=== PATIENT | male | born 1960 | race Caucasian/White ===

== ENCOUNTER 2016-06-30 18:33 | Inpatient (IN) | payer OTHER ==
[~2016-06-30] VITALS: Ht 177.8 cm; Wt 114.3 kg
[2016-06-30] MEDS ORDERED: PANTOPRAZOLE SODIUM IV 80 MG in IV NORMAL SALINE 100ML 100 ML IV ONE (19:00)
[2016-06-30] MEDS ORDERED: OCTREOTIDE 500 MCG in IV NORMAL SALINE 100ML 100 ML IV PRN (19:00)
[2016-06-30] MEDS ORDERED: OCTREOTIDE 100 MCG/ML VIAL IV ONE (19:00)
[2016-06-30] MEDS ORDERED: PANTOPRAZOLE IV PUSH 40 MG VIAL. IVP ONE (19:00)
[2016-06-30 19:08] LABS: NEG OBC FOB NEG; POS OBC FOB POS
--- NOTE | 2016-06-30 19:20 | PHYS DOC ---
Past Medical History Past Medical History: Diabetes-Type II, Heart Disease, Hypertension, Hepatitis , Other Additional Past Medical Histor: Liver failure, Cirrhosis s/p TIPS, Esophageal varices Past Surgical History: Other Additional Past Surgical Histo: esophageal bands "x200", TIPS Alcohol Use: None Drug Use: None Adult General Chief Complaint Chief Complaint: GI PROBLEM HPI HPI Patient is a 55 year old male who presents by EMS from [facility]al facility for 1 episode of dark bloody emesis this evening around 1700 and dark bloody stools for the past 3-4 days. Has felt lightheaded and fatigued recently. Notes mild vague abdominal discomfort and nausea during the past 3-4 days as well. He denies pain with eating, f/c, myalgia, chest pain, dyspnea, vision changes, numbness, tingling, weakness. His PCP and GI docs are not in the area. Review of Systems Review of Systems Constitutional: Denies fever or chills [] Eyes: Denies change in visual acuity, redness, or eye pain [] HENT: Denies nasal congestion or sore throat [] Respiratory: Denies cough or shortness of breath [] Cardiovascular: No additional information not addressed in HPI [] GI: Has mild abdominal pain, nausea, vomiting, bloody stools and bloody emesis [ ] : Denies dysuria or hematuria [] Musculoskeletal: Denies back pain or joint pain [] Integument: Denies rash or skin lesions [] Neurologic: Denies headache, focal weakness or sensory changes [] Endocrine: Denies polyuria or polydipsia [] Current Medications Current Medications Current Medications Medications (Trade) Dose Ordered Sig/Mohinder Start Time Stop Time Status Last Admin Dose Admin Octreotide Acetate 500 mcg/ Sodium Chloride 101 ml @ 0 mls/hr CONT PRN 06/30/16 19:00 06/30/16 19:39 5 MLS/HR Octreotide Acetate (SandoSTATIN) 50 mcg 1X ONCE 06/30/16 19:00 06/30/16 19:01 DC 06/30/16 19:18 50 MCG Pantoprazole Sodium (Protonix Vial) 40 mg 1X ONCE 06/30/16 19:00 06/30/16 19:01 DC 06/30/16 19:14 40 MG Pantoprazole Sodium 80 mg/ Sodium Chloride 100 ml @ 10 mls/hr 1X ONCE 06/30/16 19:00 07/01/16 04:59 06/30/16 19:13 10 MLS/HR Allergies Allergies Allergies Coded Allergies Type Severity Reaction Last Updated Verified Penicillins Allergy Unknown 06/30/16 Yes amoxicillin Allergy Unknown 06/30/16 Yes clavulanic acid Allergy Unknown 06/30/16 Yes dicloxacillin Allergy Unknown 06/30/16 Yes levofloxacin Allergy Unknown 06/30/16 Yes Physical Exam Physical Exam Constitutional: Well developed, well nourished, no acute distress, non-toxic appearance. [] HENT: Normocephalic, atraumatic, bilateral external ears normal, oropharynx moist, nose normal. [] Eyes: PERRLA, EOMI. [] Neck: Normal range of motion, supple. [] Cardiovascular:Heart rate regular rhythm [] Lungs & Thorax: Bilateral breath sounds clear to auscultation [] Abdomen: Bowel sounds normal, soft, no tenderness, no masses, no distension or obvious ascites. Nontender rectal exam with black stool on glove [] Skin: Warm, dry, no erythema, no rash. [] Back: Normal ROM. [] Extremities: No tenderness, ROM intact, no edema. [] Neurologic: Alert and oriented X 3, normal motor function, normal sensory function, no focal deficits noted. [] Psychologic: Affect normal, judgement normal, mood normal. [] Current Patient Data Vital Signs Vital Signs Date Time Temp Pulse Resp B/P (MAP) Pulse Ox O2 Delivery O2 Flow Rate FiO2 06/30/16 19:04 84 20 128/58 (81) 94 Room Air 06/30/16 18:46 98.2 98.2 Lab Values Laboratory Tests Test 06/30/16 18:42 Stool Occult Blood Positive (NEG) Course & Med Decision Making Course & Med Decision Making Pertinent Labs and Imaging studies reviewed. (See chart for details) Has anemia with an unknown baseline. Has slight elevation of his INR, without chronic anticoagulation. Laboratory evaluation is otherwise largely unremarkable. He was started on octreotide and Protonix drips for concern of upper GI bleed. Discussed case with Dr. Chirinos, who will admit. Discussed case with Dr. Walter, gastroenterology, who recommends endoscopy tonight in the ICU. Dragon Disclaimer Dragon Disclaimer This electronic medical record was generated, in whole or in part, using a voice recognition dictation system. Departure Departure Impression: Primary Impression: Upper GI bleed Additional Impressions: Liver cirrhosis Esophageal varices Disposition: ADMITTED INPATIENT Condition: CRITICAL Problem Qualifiers Additional Impressions: Liver cirrhosis Hepatic cirrhosis type: unspecified hepatic cirrhosis Esophageal varices Esophageal varices type: secondary Esophageal varices bleeding: with bleeding Qualified Codes: I85.11 - Secondary esophageal varices with bleeding Golden CONTRERAS MD June 30, 2016 19:20
[2016-06-30] MEDS ORDERED: ONDANSETRON PF 4 MG/2 ML VIAL. IV PRN (19:45)
[2016-06-30] MEDS ORDERED: ACETAMINOPHEN 325 MG TABLET. PO PRN (19:45)
[2016-06-30 19:52] LABS: BASO # 0.1 x10^3/uL (0.0-0.2); BASO % 0 % (0-3); EOS % 0 % (0-3); HEMATOCRIT 22.8 % (39.0-53.0); HEMOGLOBIN 7.9 g/dL (13.0-17.5); LYMPH # 0.7 x10^3/uL (1.0-4.8); LYMPH % 5 % (24-48); MEAN CORPUSCULAR HEMOGLOBIN 31 pg (25-35); MEAN CORPUSCULAR HGB CONC 35 g/dL (31-37); MEAN CORPUSCULAR VOLUME 91 fL (79-100); MONO % 5 % (0-9); NEUT % 90 % (31-73); PLATELET COUNT 154 x10^3/uL (140-400); RED BLOOD COUNT 2.51 x10^6/uL (4.30-5.70); RED CELL DISTRIBUTION WIDTH 17.9 % (11.5-14.5); WHITE BLOOD COUNT 15.1 x10^3/uL (4.0-11.0)
[2016-06-30 20:02] LABS: INR 1.5 (0.8-1.1); PROTHROMBIN TIME PATIENT 16.8 SEC (11.7-14.0)
[2016-06-30 20:15] LABS: CALCIUM 8.8 mg/dL (8.5-10.1); CREATININE 1.1 mg/dL (0.7-1.3); POTASSIUM 4.3 mmol/L (3.5-5.1)
[2016-06-30 20:18] LABS: ALBUMIN 2.7 g/dL (3.4-5.0); DIRECT BILIRUBIN 0.8 mg/dL (0.0-0.2); TOTAL BILIRUBIN 3.2 mg/dL (0.2-1.0); TOTAL PROTEIN 5.8 g/dL (6.4-8.2)
--- NOTE | 2016-06-30 20:58 | PDOC1 ---
History and Physical Date of Admission Date of Admission DATE: 06/30/16 TIME: 20:40 Identification/Chief Complaint Chief Complaint melena, coffee emesis Problems: Source Source: Chart review, Patient History of Present Illness History of Present Illness Mr. Pierce, is a 55 year old male who presents by EMS from [facility]. He had 1 episode of dark bloody/coffee ground emesis today, some nausea now. Dark nearly black stool for 3 days, and sticky, has been tested for heme + X2 new stress with a family situation 3 days ago, that he has been very worried about and he feels related He has Hx of Hep C, treated in 2008, but has been following with a GI in [place], Has felt lightheaded and fatigued recently. Blood sugars are usually in good control, now > 300 Past Medical History Past Medical History he takes Lasix and reports no kidney or CV issue known Cardiovascular: HTN Family History Family History: Family History Unknown Social History Smoke: No ALCOHOL: none Current Problem List Problem List Problems Medical Problems: (1) Esophageal varices Status: Acute (2) Liver cirrhosis Status: Acute (3) Upper GI bleed Status: Acute Problems: Current Medications Current Medications Current Medications Octreotide Acetate (SandoSTATIN) 50 mcg 1X ONCE IV Last administered on 19:18; Start 06/30/16 at 19:00; Stop 06/30/16 at 19:01; Status DC Octreotide Acetate 500 mcg/ Sodium Chloride 101 ml @ 0 mls/hr CONT PRN IV SEE I /O RECORD Last administered on 06/30/16 19:39; Start 06/30/16 at 19:00 Pantoprazole Sodium (Protonix Vial) 40 mg 1X ONCE IVP Last administered on 19:14; Start 06/30/16 at 19:00; Stop 06/30/16 at 19:01; Status DC Pantoprazole Sodium 80 mg/ Sodium Chloride 100 ml @ 10 mls/hr 1X ONCE IV Last administered on 06/30/16 19:13; Start 06/30/16 at 19:00; Stop 07/01/16 at 04:59 Ondansetron HCl (Zofran) 4 mg PRN Q8HRS PRN IV NAUSEA/VOMITING; Start 06/30/16 at 19:45; Stop 07/01/16 at 19:44 Acetaminophen (Tylenol) 650 mg PRN Q4HRS PRN PO FEVER; Start 06/30/16 at 19:45 ; Stop 07/01/16 at 19:44 Fentanyl Citrate (Fentanyl 2ml Vial) 50 mcg PRN Q2HR PRN IV PAIN; Start at 19:45 Allergies Allergies: Coded Allergies: Penicillins (Verified Allergy, Unknown, 06/30/16) amoxicillin (Verified Allergy, Unknown, 06/30/16) clavulanic acid (Verified Allergy, Unknown, 06/30/16) dicloxacillin (Verified Allergy, Unknown, 06/30/16) levofloxacin (Verified Allergy, Unknown, 06/30/16) ROS Review of System He denies pain with eating, f/c, myalgia, chest pain, dyspnea, vision changes, numbness, tingling, weakness. General: No: Chills, Night Sweats, Fatigue, Malaise, Appetite, Other PSYCHOLOGICAL ROS: No: Anxiety, Behavioral Disorder, Concentration difficultie , Decreased libido, Depression, Disorientation, Hallucinations, Hostility, Irritablity, Memory difficulties, Mood Swings, Obsessive thoughts, Physical abuse, Sexual abuse, Sleep disturbances, Suicidal ideation, Other Eyes: Yes Uses glasses, Yes Other (light sensitivity), No Blurry vision, No Decreased vision, No Double vision, No Dry eyes, No Excessive tearing, No Eye Pain, No Itchy Eyes, No Loss of vision, No Photophobia , No Scotomata, No Uses contacts HEENT: YES: Heacaches, No: Visual Changes, Hearing change, Nasal congestion, Nasal discharge, Oral lesions, Sinus pain, Sore Throat, Epistaxis, Sneezing, Snoring, Tinnitus, Vertigo, Vocal changes, Other Cardiovascular: No Chest Pain, No Palpitations, No Orthopnea, No Paroxysmal Noc. Dyspnea, No Edema, No Lt Headedness, No Other Gastrointestinal: No Nausea, No Vomiting, No Abdominal Pain, No Diarrhea, No Constipation, No Melena, No Hematochezia, No Other Genitourinary: No Dysuria, No Frequency, No Incontinence, No Hematuria, No Retention, No Discharge, No Urgency, No Pain, No Flank Pain, No Other, No , No , No , No , No , No , No Musculoskeletal: No Gait Disturbance, No Joint Pain, No Joint Stiffness, No Joint Swelling, No Muscle Pain, No Muscular Weakness, No Pain In:, No Swelling In:, No Other Neurological: No Behavorial Changes, No Bowel/Bladder ControlChng, No Confusion , No Dizziness, No Gait Disturbance, No Headaches, No Impaired Coord/balance, No Memory Loss, No Numbness/Tingling, No Seizures, No Speech Problems, No Tremors, No Visual Changes, No Weakness, No Other Skin: No Dry Skin, No Eczema, No Hair Changes, No Lumps, No Mole Changes, No Mottling, No Nail Changes, No Pruritus, No Rash, No Skin Lesion Changes, No Other, No Acne Physical Exam General: Alert, Oriented X3, Cooperative, No acute distress HEENT: EOMI, Mucous membr. moist/pink Lungs: Clear to auscultation, Normal air movement Heart: no gallops, no murmurs Abdomen: Normal bowel sounds, Soft Rectal Exam: not examined Extremities: No cyanosis, No edema, Normal pulses Skin: No significant lesion Neuro: Normal speech, Normal tone, Sensation intact, Cranial nerves 3-12 NL Psych/Mental Status: Mood NL Vitals Vitals Vital Signs Date Time Temp Pulse Resp B/P (MAP) Pulse Ox O2 Delivery O2 Flow Rate FiO2 06/30/16 20:04 78 21 136/62 (86) 95 Room Air 06/30/16 18:46 98.2 98.2 Labs Labs Laboratory Tests Test 06/30/16 18:42 06/30/16 19:32 Stool Occult Blood Positive (NEG) White Blood Count 15.1 x10^3/uL (4.0-11.0) Red Blood Count 2.51 x10^6/uL (4.30-5.70) Hemoglobin 7.9 g/dL (13.0-17.5) Hematocrit 22.8 % (39.0-53.0) Mean Corpuscular Volume 91 fL (79-100) Mean Corpuscular Hemoglobin 31 pg (25-35) Mean Corpuscular Hemoglobin Concent 35 g/dL (31-37) Red Cell Distribution Width 17.9 % (11.5-14.5) Platelet Count 154 x10^3/uL (140-400) Neutrophils (%) (Auto) 90 % (31-73) Lymphocytes (%) (Auto) 5 % (24-48) Monocytes (%) (Auto) 5 % (0-9) Eosinophils (%) (Auto) 0 % (0-3) Basophils (%) (Auto) 0 % (0-3) Neutrophils # (Auto) 13.5 x10^3uL (1.8-7.7) Lymphocytes # (Auto) 0.7 x10^3/uL (1.0-4.8) Monocytes # (Auto) 0.7 x10^3/uL (0.0-1.1) Eosinophils # (Auto) 0.1 x10^3/uL (0.0-0.7) Basophils # (Auto) 0.1 x10^3/uL (0.0-0.2) Prothrombin Time 16.8 SEC (11.7-14.0) Prothromb Time International Ratio 1.5 (0.8-1.1) Activated Partial Thromboplast Time 26 SEC (24-38) Sodium Level 137 mmol/L (136-145) Potassium Level 4.3 mmol/L (3.5-5.1) Chloride Level 104 mmol/L (98-107) Carbon Dioxide Level 23 mmol/L (21-32) Anion Gap 10 (6-14) Blood Urea Nitrogen 46 mg/dL (8-26) Creatinine 1.1 mg/dL (0.7-1.3) Estimated GFR (Cockcroft-Gault) 69.0 Glucose Level 340 mg/dL (70-99) Calcium Level 8.8 mg/dL (8.5-10.1) Total Bilirubin 3.2 mg/dL (0.2-1.0) Direct Bilirubin 0.8 mg/dL (0.0-0.2) Aspartate Amino Transf (AST/SGOT) 24 U/L (15-37) Alanine Aminotransferase (ALT/SGPT) 25 U/L (16-63) Alkaline Phosphatase 62 U/L (46-116) Total Protein 5.8 g/dL (6.4-8.2) Albumin 2.7 g/dL (3.4-5.0) Laboratory Tests Test 06/30/16 18:42 06/30/16 19:32 Stool Occult Blood Positive (NEG) White Blood Count 15.1 x10^3/uL (4.0-11.0) Red Blood Count 2.51 x10^6/uL (4.30-5.70) Hemoglobin 7.9 g/dL (13.0-17.5) Hematocrit 22.8 % (39.0-53.0) Mean Corpuscular Volume 91 fL (79-100) Mean Corpuscular Hemoglobin 31 pg (25-35) Mean Corpuscular Hemoglobin Concent 35 g/dL (31-37) Red Cell Distribution Width 17.9 % (11.5-14.5) Platelet Count 154 x10^3/uL (140-400) Neutrophils (%) (Auto) 90 % (31-73) Lymphocytes (%) (Auto) 5 % (24-48) Monocytes (%) (Auto) 5 % (0-9) Eosinophils (%) (Auto) 0 % (0-3) Basophils (%) (Auto) 0 % (0-3) Neutrophils # (Auto) 13.5 x10^3uL (1.8-7.7) Lymphocytes # (Auto) 0.7 x10^3/uL (1.0-4.8) Monocytes # (Auto) 0.7 x10^3/uL (0.0-1.1) Eosinophils # (Auto) 0.1 x10^3/uL (0.0-0.7) Basophils # (Auto) 0.1 x10^3/uL (0.0-0.2) Prothrombin Time 16.8 SEC (11.7-14.0) Prothromb Time International Ratio 1.5 (0.8-1.1) Activated Partial Thromboplast Time 26 SEC (24-38) Sodium Level 137 mmol/L (136-145) Potassium Level 4.3 mmol/L (3.5-5.1) Chloride Level 104 mmol/L (98-107) Carbon Dioxide Level 23 mmol/L (21-32) Anion Gap 10 (6-14) Blood Urea Nitrogen 46 mg/dL (8-26) Creatinine 1.1 mg/dL (0.7-1.3) Estimated GFR (Cockcroft-Gault) 69.0 Glucose Level 340 mg/dL (70-99) Calcium Level 8.8 mg/dL (8.5-10.1) Total Bilirubin 3.2 mg/dL (0.2-1.0) Direct Bilirubin 0.8 mg/dL (0.0-0.2) Aspartate Amino Transf (AST/SGOT) 24 U/L (15-37) Alanine Aminotransferase (ALT/SGPT) 25 U/L (16-63) Alkaline Phosphatase 62 U/L (46-116) Total Protein 5.8 g/dL (6.4-8.2) Albumin 2.7 g/dL (3.4-5.0) VTE Prophylaxis Ordered VTE Prophylaxis Devices: Yes VTE Pharmacological Prophylaxi: No Assessment/Plan Assessment/Plan Upper GI bleed possible Esoph variceal bleed, octreotide and PPI gtt ordered Hepatitis C, treated in 2008 by Interferon per patient htn, symptoms of diastolic CHF, home meds potassium, Lasix, Hctz, Lisinopril, hold all of these for ICU admit, SIRS, not infectious Mod malnutrition BMI 31, DM2, diet controlled in mcc, add SSI, hold on long acting as may be NPO, NPO now admit to ICU ROMANA SMITH MD June 30, 2016 20:58
[2016-06-30 21:00] VITALS: BP 138/70
[2016-06-30] MEDS ORDERED: DEXTROSE 50% 25 GM / 50ML DISP.SYRIN. IV PRN (21:00)
[2016-06-30] MEDS ORDERED: PHYTONADIONE (VIT K1) 10 MG in IV NORMAL SALINE 50ML 50 ML IV ONE (21:00)
[2016-06-30] MEDS ORDERED: EPINEPHrine 1 MG/ML VIAL ONE ×2 (21:00→21:36)
[2016-06-30] MEDS: INSULIN ASPART 300 UNITS/3 ML INSULN.PEN SQ SCH (21:00)
[2016-06-30] MEDS ORDERED: INSULIN DETEMIR 300 UNITS/3 ML INSULN.PEN. SQ SCH (21:00)
[2016-06-30] MEDS ORDERED: EPINEPHrine SYRINGE 1 MG/10 ML SYRINGE ONE ×3 (21:00→21:43)
[2016-06-30] MEDS ORDERED: MIDAZOLAM HCL/PF 5 MG/5 ML VIAL. ONE (21:05)
[2016-06-30] MEDS ORDERED: fentaNYL PF VIAL 100 MCG/2 ML VIAL ONE (21:05)
[2016-06-30] MEDS ORDERED: diphenhydrAMINE 50 MG/ML VIAL ONE (21:05)
[2016-06-30] MEDS: INSULIN DETEMIR 300 UNITS/3 ML INSULN.PEN. SQ SCH (21:15)
--- NOTE | 2016-06-30 21:15 | PDOC2 ---
CONSULT Date of Consult Date of Consult DATE: 06/30/16 TIME: 21:12 Reason for Consult Reason for Consult: Acute blood loss anemia/Coffee ground emesis/Hx Cirrhosis/TIPS Past Medical History Cardiovascular: HTN Family History Family History: Family History Unknown Social History No ALCOHOL: none Current Problem List Problem List Problems Medical Problems: (1) Esophageal varices Status: Acute (2) Liver cirrhosis Status: Acute (3) Upper GI bleed Status: Acute Current Medications Current Medications Current Medications Octreotide Acetate (SandoSTATIN) 50 mcg 1X ONCE IV Last administered on 19:18; Start 06/30/16 at 19:00; Stop 06/30/16 at 19:01; Status DC Octreotide Acetate 500 mcg/ Sodium Chloride 101 ml @ 0 mls/hr CONT PRN IV SEE I /O RECORD Last administered on 06/30/16 19:39; Start 06/30/16 at 19:00 Pantoprazole Sodium (Protonix Vial) 40 mg 1X ONCE IVP Last administered on 19:14; Start 06/30/16 at 19:00; Stop 06/30/16 at 19:01; Status DC Pantoprazole Sodium 80 mg/ Sodium Chloride 100 ml @ 10 mls/hr 1X ONCE IV Last administered on 06/30/16 19:13; Start 06/30/16 at 19:00; Stop 07/01/16 at 04:59 Ondansetron HCl (Zofran) 4 mg PRN Q8HRS PRN IV NAUSEA/VOMITING; Start 06/30/16 at 19:45; Stop 06/30/16 at 20:42; Status DC Acetaminophen (Tylenol) 650 mg PRN Q4HRS PRN PO FEVER; Start 06/30/16 at 19:45 ; Stop 07/01/16 at 19:44 Fentanyl Citrate (Fentanyl 2ml Vial) 50 mcg PRN Q2HR PRN IV PAIN; Start at 19:45 Ondansetron HCl (Zofran) 8 mg PRN Q8HRS PRN IV NAUSEA/VOMITING; Start 06/30/16 at 20:45 Lorazepam (Ativan) 2 mg PRN Q4HRS PRN IV ANXIETY / AGITATION; Start 06/30/16 at 20:45 Phytonadione 10 mg/Sodium Chloride 51 ml @ 102 mls/hr 1X ONCE IV ; Start 06/30 at 21:00; Stop 06/30/16 at 21:29 Insulin Aspart (NovoLOG) 0-9 UNITS QIDACHS SQ ; Start 06/30/16 at 21:00 Dextrose (Dextrose 50%-Water Syringe) 12.5 gm PRN Q15MIN PRN IV SEE COMMENTS; Start 06/30/16 at 21:00 Insulin Detemir (Levemir) QHS SQ ; Start 06/30/16 at 21:00; Stop 06/30/16 at 21 :01; Status DC Insulin Detemir (Levemir) 5 units QHS SQ ; Start 06/30/16 at 21:15 Midazolam HCl (Versed) 5 mg STK-MED ONCE .ROUTE ; Start 06/30/16 at 21:05; Stop 06/30/16 at 21:06; Status DC Fentanyl Citrate (Fentanyl 2ml Vial) 100 mcg STK-MED ONCE .ROUTE ; Start at 21:05; Stop 06/30/16 at 21:06; Status DC Diphenhydramine HCl (Benadryl) 50 mg STK-MED ONCE .ROUTE ; Start 06/30/16 at 21: 05; Stop 06/30/16 at 21:06; Status DC Allergies Allergies: Coded Allergies: Penicillins (Verified Allergy, Unknown, 06/30/16) amoxicillin (Verified Allergy, Unknown, 06/30/16) clavulanic acid (Verified Allergy, Unknown, 06/30/16) dicloxacillin (Verified Allergy, Unknown, 06/30/16) levofloxacin (Verified Allergy, Unknown, 06/30/16) Vitals VITALS Vital Signs Date Time Temp Pulse Resp B/P (MAP) Pulse Ox O2 Delivery O2 Flow Rate FiO2 06/30/16 20:04 78 21 136/62 (86) 95 Room Air 06/30/16 18:46 98.2 98.2 Labs Labs Laboratory Tests Test 06/30/16 18:42 06/30/16 19:32 Stool Occult Blood Positive (NEG) White Blood Count 15.1 x10^3/uL (4.0-11.0) Red Blood Count 2.51 x10^6/uL (4.30-5.70) Hemoglobin 7.9 g/dL (13.0-17.5) Hematocrit 22.8 % (39.0-53.0) Mean Corpuscular Volume 91 fL (79-100) Mean Corpuscular Hemoglobin 31 pg (25-35) Mean Corpuscular Hemoglobin Concent 35 g/dL (31-37) Red Cell Distribution Width 17.9 % (11.5-14.5) Platelet Count 154 x10^3/uL (140-400) Neutrophils (%) (Auto) 90 % (31-73) Lymphocytes (%) (Auto) 5 % (24-48) Monocytes (%) (Auto) 5 % (0-9) Eosinophils (%) (Auto) 0 % (0-3) Basophils (%) (Auto) 0 % (0-3) Neutrophils # (Auto) 13.5 x10^3uL (1.8-7.7) Lymphocytes # (Auto) 0.7 x10^3/uL (1.0-4.8) Monocytes # (Auto) 0.7 x10^3/uL (0.0-1.1) Eosinophils # (Auto) 0.1 x10^3/uL (0.0-0.7) Basophils # (Auto) 0.1 x10^3/uL (0.0-0.2) Prothrombin Time 16.8 SEC (11.7-14.0) Prothromb Time International Ratio 1.5 (0.8-1.1) Activated Partial Thromboplast Time 26 SEC (24-38) Sodium Level 137 mmol/L (136-145) Potassium Level 4.3 mmol/L (3.5-5.1) Chloride Level 104 mmol/L (98-107) Carbon Dioxide Level 23 mmol/L (21-32) Anion Gap 10 (6-14) Blood Urea Nitrogen 46 mg/dL (8-26) Creatinine 1.1 mg/dL (0.7-1.3) Estimated GFR (Cockcroft-Gault) 69.0 Glucose Level 340 mg/dL (70-99) Calcium Level 8.8 mg/dL (8.5-10.1) Total Bilirubin 3.2 mg/dL (0.2-1.0) Direct Bilirubin 0.8 mg/dL (0.0-0.2) Aspartate Amino Transf (AST/SGOT) 24 U/L (15-37) Alanine Aminotransferase (ALT/SGPT) 25 U/L (16-63) Alkaline Phosphatase 62 U/L (46-116) Total Protein 5.8 g/dL (6.4-8.2) Albumin 2.7 g/dL (3.4-5.0) Laboratory Tests Test 06/30/16 18:42 06/30/16 19:32 Stool Occult Blood Positive (NEG) White Blood Count 15.1 x10^3/uL (4.0-11.0) Red Blood Count 2.51 x10^6/uL (4.30-5.70) Hemoglobin 7.9 g/dL (13.0-17.5) Hematocrit 22.8 % (39.0-53.0) Mean Corpuscular Volume 91 fL (79-100) Mean Corpuscular Hemoglobin 31 pg (25-35) Mean Corpuscular Hemoglobin Concent 35 g/dL (31-37) Red Cell Distribution Width 17.9 % (11.5-14.5) Platelet Count 154 x10^3/uL (140-400) Neutrophils (%) (Auto) 90 % (31-73) Lymphocytes (%) (Auto) 5 % (24-48) Monocytes (%) (Auto) 5 % (0-9) Eosinophils (%) (Auto) 0 % (0-3) Basophils (%) (Auto) 0 % (0-3) Neutrophils # (Auto) 13.5 x10^3uL (1.8-7.7) Lymphocytes # (Auto) 0.7 x10^3/uL (1.0-4.8) Monocytes # (Auto) 0.7 x10^3/uL (0.0-1.1) Eosinophils # (Auto) 0.1 x10^3/uL (0.0-0.7) Basophils # (Auto) 0.1 x10^3/uL (0.0-0.2) Prothrombin Time 16.8 SEC (11.7-14.0) Prothromb Time International Ratio 1.5 (0.8-1.1) Activated Partial Thromboplast Time 26 SEC (24-38) Sodium Level 137 mmol/L (136-145) Potassium Level 4.3 mmol/L (3.5-5.1) Chloride Level 104 mmol/L (98-107) Carbon Dioxide Level 23 mmol/L (21-32) Anion Gap 10 (6-14) Blood Urea Nitrogen 46 mg/dL (8-26) Creatinine 1.1 mg/dL (0.7-1.3) Estimated GFR (Cockcroft-Gault) 69.0 Glucose Level 340 mg/dL (70-99) Calcium Level 8.8 mg/dL (8.5-10.1) Total Bilirubin 3.2 mg/dL (0.2-1.0) Direct Bilirubin 0.8 mg/dL (0.0-0.2) Aspartate Amino Transf (AST/SGOT) 24 U/L (15-37) Alanine Aminotransferase (ALT/SGPT) 25 U/L (16-63) Alkaline Phosphatase 62 U/L (46-116) Total Protein 5.8 g/dL (6.4-8.2) Albumin 2.7 g/dL (3.4-5.0) Assessment/Plan Assessment/Plan Acute blood loss anemia- with cirrhosis/varices/tips, etiology to be determined. Plan transfusional support to maintain Hg >8 PPI/octreotide drips EGD with possible interventions. R/B discussed with patient who is willing to proceed Full note dictated AV WOOD MD June 30, 2016 21:15
[2016-06-30] MEDS ORDERED: diphenhydrAMINE 50 MG/ML VIAL IV ONE (21:20)
[2016-06-30] MEDS ORDERED: fentaNYL PF VIAL 100 MCG/2 ML VIAL IV ONE ×2 (21:21→21:24)
[2016-06-30] MEDS ORDERED: VERAPAMIL 5 MG/2 ML VIAL. IV ONE (21:21)
[2016-06-30] MEDS ORDERED: MIDAZOLAM HCL/PF 5 MG/5 ML VIAL. IV ONE ×2 (21:24→21:28)
[2016-06-30 22:00] VITALS: BP 110/70
--- NOTE | 2016-06-30 22:00 | PDOC4 ---
Operative Note Operative Note EGD Meds Versed 5 mg/Benadryl 50 mg/Fentanyl 100 mcg Preop dx- acute blood loss anemia/hematemesis/hx cirrhosis/varices Post-op dx normal esophagus/duodenum adherent clot cardia consistent with proximal ulcer GE junction without varices Plan serial cbcs/transfusional support/PPI/octreotide therapy possible repeat EGD and/or angiography if bleeding resumes. Full note dictated AV WOOD MD June 30, 2016 22:00
[2016-06-30] MEDS ORDERED: GABAPENTIN 300 MG CAPSULE. PO ONE (22:30)
[2016-06-30] MEDS: fentaNYL PF VIAL 100 MCG/2 ML VIAL IV PRN (22:55)
[2016-06-30 23:00] VITALS: BP 117/77
--- NOTE | 2016-06-30 23:34 | OP ---
DATE OF SURGERY: 06/30/2016 PROCEDURE PERFORMED: Esophagogastroduodenoscopy. MEDICATIONS RECEIVED: Versed 5 mg IV, fentanyl 100 mcg IV, and Benadryl 50 mg IV. PREOPERATIVE DIAGNOSES: History of varices, , acute blood loss anemia and coffee ground emesis. POSTOPERATIVE DIAGNOSES: Adherent clot in the proximal stomach consistent most likely with a proximal gastric ulcer, no evidence of esophageal or gastric varices. DESCRIPTION OF PROCEDURE: After risks and benefits of procedure including risk of perforation during the operation were discussed with the patient and family, informed consent was obtained. The patient was then placed in the left lateral decubitus position. Parenteral analgesia was administered over approximately 8 minutes. Endoscope was then advanced through the esophagus where there was no evidence of retained blood, no Kandace-Bansal tear, esophageal varices at this time despite previous TIPS and history of esophageal varices. Large amount of retained dark blood was noted within the stomach. This was suctioned. There were no distal ulcers, no ulcers along the lesser curve. No GE junction pathology such as gastric varices. There was an adherent area of blood and clots in the cardia, which could not be removed with successive flushings and suctioning, the most likely bleeding source. Duodenum was inspected, first and second portions without evidence of any retained blood and clear visualization of mucosa was encountered with no varices, malignancy or tumor. The scope was then straightened and withdrawn as the patient began to awaken from his conscious sedation. He will be continued with his octreotide and PPI drips. He will receive blood transfusion, serial blood counts and potentially may need to repeat endoscopy and/or even angiography if she continues to bleed to further assess bleeding source. AV WOOD MD DR: NADIA/madelin JOB#: [id number] / [id number]
[2016-06-30 23:36] LABS: ANISOCYTOSIS SLIGHT; PLT ESTIMATE ADEQUATE (ADEQUATE); POIKILOCYTOSIS SLIGHT; POLYCHROMASIA SLIGHT
[2016-06-30 23:37] LABS: OVALOCYTES FEW
[2016-07-01] VITALS (24 sets, daily range): BP systolic 97–152; BP diastolic 38–77
--- NOTE | 2016-07-01 00:07 | ACF ---
Admission Forms Criteria GASTROINTESTINAL BLEEDING, UPPER Clinical Indications for Admission to Inpatient Care ( Place 'X' for any and all applicable criteria): Admission is indicated for ANY ONE of the following(1)(2)(3)(4)(5)(6): [X ]I. Active bleeding (eg, fresh voluminous blood in emesis or nasogastric aspirate) [ ]II. Associated conditions requiring hospitalization (eg, perforation, obstruction from ulcer) [ ]III. Inpatient admission required rather than observation care (Also use Gastrointestinal Bleeding, Upper: Observation Care as appropriate) because of ANY ONE of the following: [ ]a) Hemodynamic instability that is severe or persistent [ ]b) Anemia requiring inpatient admission as indicated by ALL of the following: [ ]1) Presence of significant clinical finding indicated by ANY ONE of the following: [ ]A. Tachycardia for age [ ]B. Orthostatic vital sign changes [ ]C. Cognitive impairment [ ]D. Heart failure [ ]E. Chest pain [ ]F. Exertional dyspnea [ ]G. Other findings suggesting inadequate perfusion (eg, peripheral or myocardial ischemia, end organ dysfunction) [ ]2) Initial (eg, emergency department, observation care) treatment with transfusion or volume replacement is judged inappropriate (due to severity of the finding) or has been ineffective [ ]c) Severe pain requiring acute inpatient management [ ]d) High-risk low platelet count [ ]e) IV fluid to replace significant ongoing losses (greater than 3 L/m2 per day) [ ]f) Immediate inpatient surgery [ ]g) Other condition, treatment or monitoring requiring inpatient admission [ ]IV. Severe liver disease (eg, cirrhosis) [ ]V. Significant active comorbid disease [ ]. Anticoagulation therapy [ ]VII. High-risk endoscopic features (arterial bleeding, adherent clot, nonbleeding visible vessel, varices, flat red spots, ulcer size greater than 2 cm, or portal hypertensive gastropathy) [ ]VIII. Previous aortic graft placement or known aortic aneurysm [ ]IX. Coagulopathy [ ]X. Syncope Extended stay beyond goal length of stay may be needed for(1)(2): [ ]a) Emergency surgery [ ]b) Varices [ ]c) Coagulation abnormalities [ ]d) Recurrent, obscure, or persistent bleeding or continued Hemodynamic instability [ ]e) Associated conditions requiring surgery (eg, perforated gastric ulcer, gastric outlet obstruction) [ ]f) Active comorbidities (eg, renal insufficiency, heart failure, pre- existing liver disease) The original [facility] [employer] content created by [facility] has been revised. The portions of the content which have been revised are identified through the use of italic text or in bold, and [facility] has neither reviewed nor approved the modified material. All other unmodified content is copyright [facility] [employer]. Please see references footnoted in the original [facility] edition 2016 Admission Criteria Met?: Yes ROCKY RUSH July 01, 2016 00:07
[2016-07-01] MEDS: fentaNYL PF VIAL 100 MCG/2 ML VIAL IV PRN (01:35)
[2016-07-01] MEDS: PANTOPRAZOLE SODIUM IV 80 MG in IV NORMAL SALINE 100ML 100 ML IV SCH ×2 (04:34→16:01)
[2016-07-01 05:43] LABS: BASO % 0 % (0-3); EOS % 3 % (0-3); HEMATOCRIT 24.4 % (39.0-53.0); HEMOGLOBIN 8.6 g/dL (13.0-17.5); LYMPH # 1.7 x10^3/uL (1.0-4.8); LYMPH % 15 % (24-48); MEAN CORPUSCULAR HEMOGLOBIN 32 pg (25-35); MEAN CORPUSCULAR HGB CONC 35 g/dL (31-37); MEAN CORPUSCULAR VOLUME 91 fL (79-100); MONO % 7 % (0-9); NEUT % 75 % (31-73); PLATELET COUNT 109 x10^3/uL (140-400); RED BLOOD COUNT 2.69 x10^6/uL (4.30-5.70); WHITE BLOOD COUNT 10.9 x10^3/uL (4.0-11.0)
--- NOTE | 2016-07-01 06:09 | CONS ---
DATE OF CONSULTATION: 06/30/2016 REASON FOR CONSULTATION: Acute blood loss anemia and coffee ground emesis. HISTORY OF PRESENT ILLNESS: A 55-year-old male who is a [place] ____ prisoner with a history of hep C as well as TIPS, hypertension, history of esophageal varices, who was admitted to [facility] with a 3-day history of bleeding with nausea, lightheadedness, dizziness and dark stools. He has been admitted and urgent upper endoscopy is requested. PAST MEDICAL HISTORY: Hypertension, hep C, cirrhosis, TIPS. ALLERGIES: PENICILLIN, LEVOFLOXACIN. MEDICATIONS: Presently include insulin, vitamin K, pantoprazole and octreotide drips. FAMILY AND SOCIAL HISTORY: [facility] Does not drink or smoke at this time. Family history is noncontributory. REVIEW OF SYSTEMS: Per records. PHYSICAL EXAMINATION: GENERAL: Reveals an icteric male. VITAL SIGNS: Temp 98.2, pulse 93, respiratory rate is 20, blood pressure is 136/82. HEENT: Reveals a normocephalic, atraumatic head. Pupils and extraocular muscles not tested. Sclerae icteric. NECK: Supple. LUNGS: Clear. CARDIOVASCULAR: Reveals an S1, S2 without S3, S4 or appreciable murmur. ABDOMEN: Reveals a soft abdomen, normal bowel sounds, ____ appreciable hepatosplenomegaly. EXTREMITIES: Reveals no cyanosis, clubbing or edema. LABORATORY STUDIES: Hemoglobin 7.9, hematocrit 22.0, white count 15.1, platelet count is 154,000. Sodium 137, potassium 4.2, chloride 104, bicarb 22, BUN 46, creatinine 1.1, glucose 340, calcium 8.8, total bili 3.2, direct bili 0.8, AST of 24, ALT of 25, alk phos 62, total protein is 5.8, albumin is 2.7. INR is 1.5. IMPRESSION: Acute blood loss anemia with coffee ground emesis with a history of cirrhosis, varices, hep C, status post TIPS. Differential includes recurrent variceal bleeding, Kandace-Bansal tear, peptic ulcer disease, malignancy, Dieulafoy lesion. We will therefore recommend upper endoscopy. We will place him on octreotide/Sandostatin drips with possible potential endoscopic therapy including banding, cautery, epinephrine injection, clipping. If this is unsuccessful, depending upon the source of lesion, potential CT angiogram, embolization and/or TIPS revision may be warranted. I would like to thank Dr. Chirinos for allowing us to consult and participate in this patient's care. AV WOOD MD DR: NADIA/madelin JOB#: [id number] / [id number] daya Chirinos Dr.
[2016-07-01 06:10] LABS: ALBUMIN 2.4 g/dL (3.4-5.0); ALBUMIN/GLOBULIN RATIO 0.8 (1.0-1.7); CALCIUM 8.1 mg/dL (8.5-10.1); CREATININE 1.1 mg/dL (0.7-1.3); TOTAL BILIRUBIN 2.5 mg/dL (0.2-1.0); TOTAL PROTEIN 5.4 g/dL (6.4-8.2)
[2016-07-01] MEDS: INSULIN ASPART 300 UNITS/3 ML INSULN.PEN SQ SCH ×4 (07:30→21:19)
[2016-07-01] MEDS: GABAPENTIN 300 MG CAPSULE. PO SCH ×3 (09:03→21:15)
--- NOTE | 2016-07-01 09:12 | PDOC ---
Subjective: Subjective: Feels weak but not worse. No bleeding. Asks for cottage cheese. Neuropathy pain significantly better. Objective: Objective: Per RN - no further bleeding, has had some dizziness. Vital Signs: Vital Signs Date Time Temp Pulse Resp B/P (MAP) Pulse Ox O2 Delivery O2 Flow Rate FiO2 07/01/16 08:00 98.6 68 20 106/50 (68) 96 Nasal Cannula 2.0 98.6 Labs: Laboratory Tests Test 06/30/16 18:42 06/30/16 19:32 07/01/16 05:10 07/01/16 07:54 Stool Occult Blood Positive White Blood Count 15.1 x10^3/uL 10.9 x10^3/uL Red Blood Count 2.51 x10^6/uL 2.69 x10^6/uL Hemoglobin 7.9 g/dL 8.6 g/dL Hematocrit 22.8 % 24.4 % Mean Corpuscular Volume 91 fL 91 fL Mean Corpuscular Hemoglobin 31 pg 32 pg Mean Corpuscular Hemoglobin Concent 35 g/dL 35 g/dL Red Cell Distribution Width 17.9 % 17.0 % Platelet Count 154 x10^3/uL 109 x10^3/uL Neutrophils (%) (Auto) 90 % 75 % Lymphocytes (%) (Auto) 5 % 15 % Monocytes (%) (Auto) 5 % 7 % Eosinophils (%) (Auto) 0 % 3 % Basophils (%) (Auto) 0 % 0 % Neutrophils # (Auto) 13.5 x10^3uL 8.1 x10^3uL Lymphocytes # (Auto) 0.7 x10^3/uL 1.7 x10^3/uL Monocytes # (Auto) 0.7 x10^3/uL 0.7 x10^3/uL Eosinophils # (Auto) 0.1 x10^3/uL 0.3 x10^3/uL Basophils # (Auto) 0.1 x10^3/uL 0.0 x10^3/uL Segmented Neutrophils % 91 % Lymphocytes % 5 % Monocytes % 3 % Metamyelocytes % 1 % Platelet Estimate Adequate Polychromasia Slight Poikilocytosis Slight Anisocytosis Slight Macrocytosis Slight Ovalocytes Few Prothrombin Time 16.8 SEC Prothromb Time International Ratio 1.5 Activated Partial Thromboplast Time 26 SEC Sodium Level 137 mmol/L 140 mmol/L Potassium Level 4.3 mmol/L 4.0 mmol/L Chloride Level 104 mmol/L 108 mmol/L Carbon Dioxide Level 23 mmol/L 26 mmol/L Anion Gap 10 6 Blood Urea Nitrogen 46 mg/dL 41 mg/dL Creatinine 1.1 mg/dL 1.1 mg/dL Estimated GFR (Cockcroft-Gault) 69.0 69.0 Glucose Level 340 mg/dL 197 mg/dL Calcium Level 8.8 mg/dL 8.1 mg/dL Total Bilirubin 3.2 mg/dL 2.5 mg/dL Direct Bilirubin 0.8 mg/dL Aspartate Amino Transf (AST/SGOT) 24 U/L 22 U/L Alanine Aminotransferase (ALT/SGPT) 25 U/L 22 U/L Alkaline Phosphatase 62 U/L 52 U/L Total Protein 5.8 g/dL 5.4 g/dL Albumin 2.7 g/dL 2.4 g/dL BUN/Creatinine Ratio 37 Albumin/Globulin Ratio 0.8 Glucose (Fingerstick) 192 mg/dL Imaging: EGD 06/30/16: normal esophagus (no varices), normal duodenum, adherent clot cardia consistent with proximal ulcer PE: GEN: NAD LUNGS: CTAB HEART: RRR ABD: NABS, S/ND/NT NEURO/PSYCH: A & O 3 A/P: Coffee-ground emesis - no recurrence Hep C cirrhosis s/p TIPS, thrombocytopenia Gastric ulcer w/ clot s/p EGD 06/30/16 Anemia -Hgb from 7.9 to 8.6 s/p transfusion 2 units -- D/w Dr. Walter: -stop octreotide and try clear liquids. -continue PPI and monitoring in ICU. BETO IQBAL July 01, 2016 09:12
--- NOTE | 2016-07-01 09:22 | PDOC1 ---
History and Physical Past Medical History Cardiovascular: HTN Family History Family History: Family History Unknown Social History Smoke: No ALCOHOL: none Current Problem List Problem List Problems Medical Problems: (1) Esophageal varices Status: Acute (2) Liver cirrhosis Status: Acute (3) Upper GI bleed Status: Acute Current Medications Current Medications Current Medications Medications (Trade) Dose Ordered Sig/Mohinder Start Time Stop Time Status Last Admin Dose Admin Acetaminophen (Tylenol) 650 mg PRN Q4HRS PRN 06/30/16 19:45 07/01/16 19:44 Dextrose (Dextrose 50%-Water Syringe) 12.5 gm PRN Q15MIN PRN 06/30/16 21:00 Diphenhydramine HCl (Benadryl) 50 mg STK-MED ONCE 06/30/16 21:20 06/30/16 21:26 DC 06/30/16 21:20 50 MG Epinephrine HCl (Adrenalin) 1 mg STK-MED ONCE 06/30/16 21:00 07/01/16 08:38 DC Epinephrine HCl (EPINEPHrine SYRINGE) 2 mg STK-MED ONCE 06/30/16 21:00 07/01/16 08:38 DC Fentanyl Citrate (Fentanyl 2ml Vial) 100 mcg STK-MED ONCE 06/30/16 21:24 06/30/16 21:27 DC 06/30/16 21:24 50 MCG Gabapentin (Neurontin) 300 mg 1X ONCE 06/30/16 22:30 06/30/16 22:31 DC 06/30/16 22:31 300 MG Insulin Aspart (NovoLOG) 0-9 UNITS QIDACHS 06/30/16 21:00 Insulin Detemir (Levemir) 5 units QHS 06/30/16 21:15 Lorazepam (Ativan) 2 mg PRN Q4HRS PRN 06/30/16 20:45 07/01/16 00:32 2 MG Midazolam HCl (Versed) 5 mg STK-MED ONCE 06/30/16 21:28 06/30/16 21:30 DC 06/30/16 21:28 1 MG Octreotide Acetate 500 mcg/ Sodium Chloride 101 ml @ 0 mls/hr CONT PRN 06/30/16 19:00 06/30/16 19:39 5 MLS/HR Octreotide Acetate (SandoSTATIN) 50 mcg 1X ONCE 06/30/16 19:00 07/01/16 09:11 DC 06/30/16 19:18 50 MCG Ondansetron HCl (Zofran) 8 mg PRN Q8HRS PRN 06/30/16 20:45 Pantoprazole Sodium (Protonix Vial) 40 mg 1X ONCE 06/30/16 19:00 06/30/16 19:01 DC 06/30/16 19:14 40 MG Pantoprazole Sodium 80 mg/ Sodium Chloride 100 ml @ 10 mls/hr Q10H 07/01/16 04:00 07/01/16 04:34 10 MLS/HR Phytonadione 10 mg/Sodium Chloride 51 ml @ 102 mls/hr 1X ONCE 06/30/16 21:00 06/30/16 21:29 DC 06/30/16 22:25 102 MLS/HR Verapamil HCl (Verapamil) 5 mg STK-MED ONCE 06/30/16 21:21 06/30/16 21:26 DC 06/30/16 21:21 2 MG Allergies Allergies Allergies Coded Allergies Type Severity Reaction Last Updated Verified Penicillins Allergy Intermediate 07/01/16 Yes amoxicillin Allergy Intermediate 07/01/16 Yes dicloxacillin Allergy Intermediate 07/01/16 Yes levofloxacin Allergy Intermediate 07/01/16 Yes ROS Review of System CONSTITUTIONAL: No fever or chills EYES: No recent changes SKIN: No rash or itching CARDIOVASCULAR: No chest pain, syncope, palpitations, or edema RESPIRATORY: No SOB or cough GASTROINTESTINAL: No nausea, vomiting or abdominal pain NEUROLOGICAL: No headaches or weakness ENDOCRINE: No cold or heat intolerance GENITOURINARY: No urgency or frequency of urination MUSCULOSKELETAL: No back pain or joint pain LYMPHATICS: No enlarged lymph nodes PSYCHIATRIC: No anxiety or depression Physical Exam Physical Exam GEN.: No apparent distress. Alert and oriented. HEENT: Head is normocephalic, atraumatic NECK: Supple. LUNGS: Clear to auscultation. HEART: RRR, S1, S2 present. Peripheral pulses intact ABDOMEN: Soft, nontender. Positive bowel sounds. EXTREMITIES: Without any cyanosis. NEUROLOGIC: Normal speech, normal tone PSYCHIATRIC: Normal affect, normal mood. SKIN: No ulcerations Vitals Vitals Vital Signs Date Time Temp Pulse Resp B/P (MAP) Pulse Ox O2 Delivery O2 Flow Rate FiO2 07/01/16 09:00 65 19 97/42 (60) 96 Nasal Cannula 2.0 07/01/16 08:00 98.6 98.6 Labs Labs Laboratory Tests Test 06/30/16 18:42 06/30/16 19:32 07/01/16 05:10 07/01/16 07:54 Stool Occult Blood Positive (NEG) White Blood Count 15.1 x10^3/uL (4.0-11.0) 10.9 x10^3/uL (4.0-11.0) Red Blood Count 2.51 x10^6/uL (4.30-5.70) 2.69 x10^6/uL (4.30-5.70) Hemoglobin 7.9 g/dL (13.0-17.5) 8.6 g/dL (13.0-17.5) Hematocrit 22.8 % (39.0-53.0) 24.4 % (39.0-53.0) Mean Corpuscular Volume 91 fL (79-100) 91 fL (79-100) Mean Corpuscular Hemoglobin 31 pg (25-35) 32 pg (25-35) Mean Corpuscular Hemoglobin Concent 35 g/dL (31-37) 35 g/dL (31-37) Red Cell Distribution Width 17.9 % (11.5-14.5) 17.0 % (11.5-14.5) Platelet Count 154 x10^3/uL (140-400) 109 x10^3/uL (140-400) Neutrophils (%) (Auto) 90 % (31-73) 75 % (31-73) Lymphocytes (%) (Auto) 5 % (24-48) 15 % (24-48) Monocytes (%) (Auto) 5 % (0-9) 7 % (0-9) Eosinophils (%) (Auto) 0 % (0-3) 3 % (0-3) Basophils (%) (Auto) 0 % (0-3) 0 % (0-3) Neutrophils # (Auto) 13.5 x10^3uL (1.8-7.7) 8.1 x10^3uL (1.8-7.7) Lymphocytes # (Auto) 0.7 x10^3/uL (1.0-4.8) 1.7 x10^3/uL (1.0-4.8) Monocytes # (Auto) 0.7 x10^3/uL (0.0-1.1) 0.7 x10^3/uL (0.0-1.1) Eosinophils # (Auto) 0.1 x10^3/uL (0.0-0.7) 0.3 x10^3/uL (0.0-0.7) Basophils # (Auto) 0.1 x10^3/uL (0.0-0.2) 0.0 x10^3/uL (0.0-0.2) Segmented Neutrophils % 91 % (35-66) Lymphocytes % 5 % (24-48) Monocytes % 3 % (0-10) Metamyelocytes % 1 % (0-0) Platelet Estimate Adequate (ADEQUATE) Polychromasia Slight Poikilocytosis Slight Anisocytosis Slight Macrocytosis Slight Ovalocytes Few Prothrombin Time 16.8 SEC (11.7-14.0) Prothromb Time International Ratio 1.5 (0.8-1.1) Activated Partial Thromboplast Time 26 SEC (24-38) Sodium Level 137 mmol/L (136-145) 140 mmol/L (136-145) Potassium Level 4.3 mmol/L (3.5-5.1) 4.0 mmol/L (3.5-5.1) Chloride Level 104 mmol/L (98-107) 108 mmol/L (98-107) Carbon Dioxide Level 23 mmol/L (21-32) 26 mmol/L (21-32) Anion Gap 10 (6-14) 6 (6-14) Blood Urea Nitrogen 46 mg/dL (8-26) 41 mg/dL (8-26) Creatinine 1.1 mg/dL (0.7-1.3) 1.1 mg/dL (0.7-1.3) Estimated GFR (Cockcroft-Gault) 69.0 69.0 Glucose Level 340 mg/dL (70-99) 197 mg/dL (70-99) Calcium Level 8.8 mg/dL (8.5-10.1) 8.1 mg/dL (8.5-10.1) Total Bilirubin 3.2 mg/dL (0.2-1.0) 2.5 mg/dL (0.2-1.0) Direct Bilirubin 0.8 mg/dL (0.0-0.2) Aspartate Amino Transf (AST/SGOT) 24 U/L (15-37) 22 U/L (15-37) Alanine Aminotransferase (ALT/SGPT) 25 U/L (16-63) 22 U/L (16-63) Alkaline Phosphatase 62 U/L (46-116) 52 U/L (46-116) Total Protein 5.8 g/dL (6.4-8.2) 5.4 g/dL (6.4-8.2) Albumin 2.7 g/dL (3.4-5.0) 2.4 g/dL (3.4-5.0) BUN/Creatinine Ratio 37 (6-20) Albumin/Globulin Ratio 0.8 (1.0-1.7) Glucose (Fingerstick) 192 mg/dL (70-99) Laboratory Tests Test 06/30/16 18:42 06/30/16 19:32 07/01/16 05:10 07/01/16 07:54 Stool Occult Blood Positive (NEG) White Blood Count 15.1 x10^3/uL (4.0-11.0) 10.9 x10^3/uL (4.0-11.0) Red Blood Count 2.51 x10^6/uL (4.30-5.70) 2.69 x10^6/uL (4.30-5.70) Hemoglobin 7.9 g/dL (13.0-17.5) 8.6 g/dL (13.0-17.5) Hematocrit 22.8 % (39.0-53.0) 24.4 % (39.0-53.0) Mean Corpuscular Volume 91 fL (79-100) 91 fL (79-100) Mean Corpuscular Hemoglobin 31 pg (25-35) 32 pg (25-35) Mean Corpuscular Hemoglobin Concent 35 g/dL (31-37) 35 g/dL (31-37) Red Cell Distribution Width 17.9 % (11.5-14.5) 17.0 % (11.5-14.5) Platelet Count 154 x10^3/uL (140-400) 109 x10^3/uL (140-400) Neutrophils (%) (Auto) 90 % (31-73) 75 % (31-73) Lymphocytes (%) (Auto) 5 % (24-48) 15 % (24-48) Monocytes (%) (Auto) 5 % (0-9) 7 % (0-9) Eosinophils (%) (Auto) 0 % (0-3) 3 % (0-3) Basophils (%) (Auto) 0 % (0-3) 0 % (0-3) Neutrophils # (Auto) 13.5 x10^3uL (1.8-7.7) 8.1 x10^3uL (1.8-7.7) Lymphocytes # (Auto) 0.7 x10^3/uL (1.0-4.8) 1.7 x10^3/uL (1.0-4.8) Monocytes # (Auto) 0.7 x10^3/uL (0.0-1.1) 0.7 x10^3/uL (0.0-1.1) Eosinophils # (Auto) 0.1 x10^3/uL (0.0-0.7) 0.3 x10^3/uL (0.0-0.7) Basophils # (Auto) 0.1 x10^3/uL (0.0-0.2) 0.0 x10^3/uL (0.0-0.2) Segmented Neutrophils % 91 % (35-66) Lymphocytes % 5 % (24-48) Monocytes % 3 % (0-10) Metamyelocytes % 1 % (0-0) Platelet Estimate Adequate (ADEQUATE) Polychromasia Slight Poikilocytosis Slight Anisocytosis Slight Macrocytosis Slight Ovalocytes Few Prothrombin Time 16.8 SEC (11.7-14.0) Prothromb Time International Ratio 1.5 (0.8-1.1) Activated Partial Thromboplast Time 26 SEC (24-38) Sodium Level 137 mmol/L (136-145) 140 mmol/L (136-145) Potassium Level 4.3 mmol/L (3.5-5.1) 4.0 mmol/L (3.5-5.1) Chloride Level 104 mmol/L (98-107) 108 mmol/L (98-107) Carbon Dioxide Level 23 mmol/L (21-32) 26 mmol/L (21-32) Anion Gap 10 (6-14) 6 (6-14) Blood Urea Nitrogen 46 mg/dL (8-26) 41 mg/dL (8-26) Creatinine 1.1 mg/dL (0.7-1.3) 1.1 mg/dL (0.7-1.3) Estimated GFR (Cockcroft-Gault) 69.0 69.0 Glucose Level 340 mg/dL (70-99) 197 mg/dL (70-99) Calcium Level 8.8 mg/dL (8.5-10.1) 8.1 mg/dL (8.5-10.1) Total Bilirubin 3.2 mg/dL (0.2-1.0) 2.5 mg/dL (0.2-1.0) Direct Bilirubin 0.8 mg/dL (0.0-0.2) Aspartate Amino Transf (AST/SGOT) 24 U/L (15-37) 22 U/L (15-37) Alanine Aminotransferase (ALT/SGPT) 25 U/L (16-63) 22 U/L (16-63) Alkaline Phosphatase 62 U/L (46-116) 52 U/L (46-116) Total Protein 5.8 g/dL (6.4-8.2) 5.4 g/dL (6.4-8.2) Albumin 2.7 g/dL (3.4-5.0) 2.4 g/dL (3.4-5.0) BUN/Creatinine Ratio 37 (6-20) Albumin/Globulin Ratio 0.8 (1.0-1.7) Glucose (Fingerstick) 192 mg/dL (70-99) VTE Prophylaxis Ordered VTE Prophylaxis Devices: Contraindicated VTE Pharmacological Prophylaxi: RAMONITA Goodrich MD July 01, 2016 09:22
--- NOTE | 2016-07-01 09:26 | PDOC ---
PROGRESS NOTES Chief Complaint Chief Complaint cc: coffe ground emesis A/P Coffee-ground emesis, : s/p PRBC, Gastric ulcer w/ clot s/p EGD 06/30/16,: On Protonix gtt, with octreotide drip, frequent monitoring of hemogram. Mild hypotension: usually HTN, NS bolus times and add IVNS at 75mls/hr. DM2 with hyperglycemia, : NPO, SSI, hold home medications. hx Hep C cirrhosis s/p TIPS, thrombocytopenia Anemia: acute blood loss, S/P 2 PRBC. prognosis guarded. History of Present Illness History of Present Illness DOING BETTER WEAK NO BLEEDING NO CHEST PAIN Vitals Vitals Vital Signs Date Time Temp Pulse Resp B/P (MAP) Pulse Ox O2 Delivery O2 Flow Rate FiO2 07/01/16 09:00 65 19 97/42 (60) 96 Nasal Cannula 2.0 07/01/16 08:00 98.6 98.6 Physical Exam General: Alert, Oriented X3, Cooperative, No acute distress Heart: Normal S1, Normal S2 Lungs: Clear Abdomen: Normal bowel sounds, Soft Extremities: No cyanosis, No edema, Normal pulses Skin: No significant lesion Labs LABS Laboratory Tests Test 06/30/16 18:42 06/30/16 19:32 07/01/16 05:10 07/01/16 07:54 Stool Occult Blood Positive (NEG) White Blood Count 15.1 x10^3/uL (4.0-11.0) 10.9 x10^3/uL (4.0-11.0) Red Blood Count 2.51 x10^6/uL (4.30-5.70) 2.69 x10^6/uL (4.30-5.70) Hemoglobin 7.9 g/dL (13.0-17.5) 8.6 g/dL (13.0-17.5) Hematocrit 22.8 % (39.0-53.0) 24.4 % (39.0-53.0) Mean Corpuscular Volume 91 fL (79-100) 91 fL (79-100) Mean Corpuscular Hemoglobin 31 pg (25-35) 32 pg (25-35) Mean Corpuscular Hemoglobin Concent 35 g/dL (31-37) 35 g/dL (31-37) Red Cell Distribution Width 17.9 % (11.5-14.5) 17.0 % (11.5-14.5) Platelet Count 154 x10^3/uL (140-400) 109 x10^3/uL (140-400) Neutrophils (%) (Auto) 90 % (31-73) 75 % (31-73) Lymphocytes (%) (Auto) 5 % (24-48) 15 % (24-48) Monocytes (%) (Auto) 5 % (0-9) 7 % (0-9) Eosinophils (%) (Auto) 0 % (0-3) 3 % (0-3) Basophils (%) (Auto) 0 % (0-3) 0 % (0-3) Neutrophils # (Auto) 13.5 x10^3uL (1.8-7.7) 8.1 x10^3uL (1.8-7.7) Lymphocytes # (Auto) 0.7 x10^3/uL (1.0-4.8) 1.7 x10^3/uL (1.0-4.8) Monocytes # (Auto) 0.7 x10^3/uL (0.0-1.1) 0.7 x10^3/uL (0.0-1.1) Eosinophils # (Auto) 0.1 x10^3/uL (0.0-0.7) 0.3 x10^3/uL (0.0-0.7) Basophils # (Auto) 0.1 x10^3/uL (0.0-0.2) 0.0 x10^3/uL (0.0-0.2) Segmented Neutrophils % 91 % (35-66) Lymphocytes % 5 % (24-48) Monocytes % 3 % (0-10) Metamyelocytes % 1 % (0-0) Platelet Estimate Adequate (ADEQUATE) Polychromasia Slight Poikilocytosis Slight Anisocytosis Slight Macrocytosis Slight Ovalocytes Few Prothrombin Time 16.8 SEC (11.7-14.0) Prothromb Time International Ratio 1.5 (0.8-1.1) Activated Partial Thromboplast Time 26 SEC (24-38) Sodium Level 137 mmol/L (136-145) 140 mmol/L (136-145) Potassium Level 4.3 mmol/L (3.5-5.1) 4.0 mmol/L (3.5-5.1) Chloride Level 104 mmol/L (98-107) 108 mmol/L (98-107) Carbon Dioxide Level 23 mmol/L (21-32) 26 mmol/L (21-32) Anion Gap 10 (6-14) 6 (6-14) Blood Urea Nitrogen 46 mg/dL (8-26) 41 mg/dL (8-26) Creatinine 1.1 mg/dL (0.7-1.3) 1.1 mg/dL (0.7-1.3) Estimated GFR (Cockcroft-Gault) 69.0 69.0 Glucose Level 340 mg/dL (70-99) 197 mg/dL (70-99) Calcium Level 8.8 mg/dL (8.5-10.1) 8.1 mg/dL (8.5-10.1) Total Bilirubin 3.2 mg/dL (0.2-1.0) 2.5 mg/dL (0.2-1.0) Direct Bilirubin 0.8 mg/dL (0.0-0.2) Aspartate Amino Transf (AST/SGOT) 24 U/L (15-37) 22 U/L (15-37) Alanine Aminotransferase (ALT/SGPT) 25 U/L (16-63) 22 U/L (16-63) Alkaline Phosphatase 62 U/L (46-116) 52 U/L (46-116) Total Protein 5.8 g/dL (6.4-8.2) 5.4 g/dL (6.4-8.2) Albumin 2.7 g/dL (3.4-5.0) 2.4 g/dL (3.4-5.0) BUN/Creatinine Ratio 37 (6-20) Albumin/Globulin Ratio 0.8 (1.0-1.7) Glucose (Fingerstick) 192 mg/dL (70-99) Assessment and Plan Assessmemt and Plan Problems Medical Problems: (1) Esophageal varices Status: Acute (2) Liver cirrhosis Status: Acute (3) Upper GI bleed Status: Acute Problems: Comment Review of Relevant I have reviewed the following items heriberto (where applicable) has been applied. Labs Laboratory Tests Test 06/30/16 18:42 06/30/16 19:32 07/01/16 05:10 07/01/16 07:54 Stool Occult Blood Positive (NEG) White Blood Count 15.1 x10^3/uL (4.0-11.0) 10.9 x10^3/uL (4.0-11.0) Red Blood Count 2.51 x10^6/uL (4.30-5.70) 2.69 x10^6/uL (4.30-5.70) Hemoglobin 7.9 g/dL (13.0-17.5) 8.6 g/dL (13.0-17.5) Hematocrit 22.8 % (39.0-53.0) 24.4 % (39.0-53.0) Mean Corpuscular Volume 91 fL (79-100) 91 fL (79-100) Mean Corpuscular Hemoglobin 31 pg (25-35) 32 pg (25-35) Mean Corpuscular Hemoglobin Concent 35 g/dL (31-37) 35 g/dL (31-37) Red Cell Distribution Width 17.9 % (11.5-14.5) 17.0 % (11.5-14.5) Platelet Count 154 x10^3/uL (140-400) 109 x10^3/uL (140-400) Neutrophils (%) (Auto) 90 % (31-73) 75 % (31-73) Lymphocytes (%) (Auto) 5 % (24-48) 15 % (24-48) Monocytes (%) (Auto) 5 % (0-9) 7 % (0-9) Eosinophils (%) (Auto) 0 % (0-3) 3 % (0-3) Basophils (%) (Auto) 0 % (0-3) 0 % (0-3) Neutrophils # (Auto) 13.5 x10^3uL (1.8-7.7) 8.1 x10^3uL (1.8-7.7) Lymphocytes # (Auto) 0.7 x10^3/uL (1.0-4.8) 1.7 x10^3/uL (1.0-4.8) Monocytes # (Auto) 0.7 x10^3/uL (0.0-1.1) 0.7 x10^3/uL (0.0-1.1) Eosinophils # (Auto) 0.1 x10^3/uL (0.0-0.7) 0.3 x10^3/uL (0.0-0.7) Basophils # (Auto) 0.1 x10^3/uL (0.0-0.2) 0.0 x10^3/uL (0.0-0.2) Segmented Neutrophils % 91 % (35-66) Lymphocytes % 5 % (24-48) Monocytes % 3 % (0-10) Metamyelocytes % 1 % (0-0) Platelet Estimate Adequate (ADEQUATE) Polychromasia Slight Poikilocytosis Slight Anisocytosis Slight Macrocytosis Slight Ovalocytes Few Prothrombin Time 16.8 SEC (11.7-14.0) Prothromb Time International Ratio 1.5 (0.8-1.1) Activated Partial Thromboplast Time 26 SEC (24-38) Sodium Level 137 mmol/L (136-145) 140 mmol/L (136-145) Potassium Level 4.3 mmol/L (3.5-5.1) 4.0 mmol/L (3.5-5.1) Chloride Level 104 mmol/L (98-107) 108 mmol/L (98-107) Carbon Dioxide Level 23 mmol/L (21-32) 26 mmol/L (21-32) Anion Gap 10 (6-14) 6 (6-14) Blood Urea Nitrogen 46 mg/dL (8-26) 41 mg/dL (8-26) Creatinine 1.1 mg/dL (0.7-1.3) 1.1 mg/dL (0.7-1.3) Estimated GFR (Cockcroft-Gault) 69.0 69.0 Glucose Level 340 mg/dL (70-99) 197 mg/dL (70-99) Calcium Level 8.8 mg/dL (8.5-10.1) 8.1 mg/dL (8.5-10.1) Total Bilirubin 3.2 mg/dL (0.2-1.0) 2.5 mg/dL (0.2-1.0) Direct Bilirubin 0.8 mg/dL (0.0-0.2) Aspartate Amino Transf (AST/SGOT) 24 U/L (15-37) 22 U/L (15-37) Alanine Aminotransferase (ALT/SGPT) 25 U/L (16-63) 22 U/L (16-63) Alkaline Phosphatase 62 U/L (46-116) 52 U/L (46-116) Total Protein 5.8 g/dL (6.4-8.2) 5.4 g/dL (6.4-8.2) Albumin 2.7 g/dL (3.4-5.0) 2.4 g/dL (3.4-5.0) BUN/Creatinine Ratio 37 (6-20) Albumin/Globulin Ratio 0.8 (1.0-1.7) Glucose (Fingerstick) 192 mg/dL (70-99) Laboratory Tests Test 06/30/16 18:42 06/30/16 19:32 07/01/16 05:10 07/01/16 07:54 Stool Occult Blood Positive (NEG) White Blood Count 15.1 x10^3/uL (4.0-11.0) 10.9 x10^3/uL (4.0-11.0) Red Blood Count 2.51 x10^6/uL (4.30-5.70) 2.69 x10^6/uL (4.30-5.70) Hemoglobin 7.9 g/dL (13.0-17.5) 8.6 g/dL (13.0-17.5) Hematocrit 22.8 % (39.0-53.0) 24.4 % (39.0-53.0) Mean Corpuscular Volume 91 fL (79-100) 91 fL (79-100) Mean Corpuscular Hemoglobin 31 pg (25-35) 32 pg (25-35) Mean Corpuscular Hemoglobin Concent 35 g/dL (31-37) 35 g/dL (31-37) Red Cell Distribution Width 17.9 % (11.5-14.5) 17.0 % (11.5-14.5) Platelet Count 154 x10^3/uL (140-400) 109 x10^3/uL (140-400) Neutrophils (%) (Auto) 90 % (31-73) 75 % (31-73) Lymphocytes (%) (Auto) 5 % (24-48) 15 % (24-48) Monocytes (%) (Auto) 5 % (0-9) 7 % (0-9) Eosinophils (%) (Auto) 0 % (0-3) 3 % (0-3) Basophils (%) (Auto) 0 % (0-3) 0 % (0-3) Neutrophils # (Auto) 13.5 x10^3uL (1.8-7.7) 8.1 x10^3uL (1.8-7.7) Lymphocytes # (Auto) 0.7 x10^3/uL (1.0-4.8) 1.7 x10^3/uL (1.0-4.8) Monocytes # (Auto) 0.7 x10^3/uL (0.0-1.1) 0.7 x10^3/uL (0.0-1.1) Eosinophils # (Auto) 0.1 x10^3/uL (0.0-0.7) 0.3 x10^3/uL (0.0-0.7) Basophils # (Auto) 0.1 x10^3/uL (0.0-0.2) 0.0 x10^3/uL (0.0-0.2) Segmented Neutrophils % 91 % (35-66) Lymphocytes % 5 % (24-48) Monocytes % 3 % (0-10) Metamyelocytes % 1 % (0-0) Platelet Estimate Adequate (ADEQUATE) Polychromasia Slight Poikilocytosis Slight Anisocytosis Slight Macrocytosis Slight Ovalocytes Few Prothrombin Time 16.8 SEC (11.7-14.0) Prothromb Time International Ratio 1.5 (0.8-1.1) Activated Partial Thromboplast Time 26 SEC (24-38) Sodium Level 137 mmol/L (136-145) 140 mmol/L (136-145) Potassium Level 4.3 mmol/L (3.5-5.1) 4.0 mmol/L (3.5-5.1) Chloride Level 104 mmol/L (98-107) 108 mmol/L (98-107) Carbon Dioxide Level 23 mmol/L (21-32) 26 mmol/L (21-32) Anion Gap 10 (6-14) 6 (6-14) Blood Urea Nitrogen 46 mg/dL (8-26) 41 mg/dL (8-26) Creatinine 1.1 mg/dL (0.7-1.3) 1.1 mg/dL (0.7-1.3) Estimated GFR (Cockcroft-Gault) 69.0 69.0 Glucose Level 340 mg/dL (70-99) 197 mg/dL (70-99) Calcium Level 8.8 mg/dL (8.5-10.1) 8.1 mg/dL (8.5-10.1) Total Bilirubin 3.2 mg/dL (0.2-1.0) 2.5 mg/dL (0.2-1.0) Direct Bilirubin 0.8 mg/dL (0.0-0.2) Aspartate Amino Transf (AST/SGOT) 24 U/L (15-37) 22 U/L (15-37) Alanine Aminotransferase (ALT/SGPT) 25 U/L (16-63) 22 U/L (16-63) Alkaline Phosphatase 62 U/L (46-116) 52 U/L (46-116) Total Protein 5.8 g/dL (6.4-8.2) 5.4 g/dL (6.4-8.2) Albumin 2.7 g/dL (3.4-5.0) 2.4 g/dL (3.4-5.0) BUN/Creatinine Ratio 37 (6-20) Albumin/Globulin Ratio 0.8 (1.0-1.7) Glucose (Fingerstick) 192 mg/dL (70-99) Medications Current Medications Octreotide Acetate (SandoSTATIN) 50 mcg 1X ONCE IV Last administered on 19:18; Start 06/30/16 at 19:00; Stop 07/01/16 at 09:11; Status DC Octreotide Acetate 500 mcg/ Sodium Chloride 101 ml @ 0 mls/hr CONT PRN IV SEE I /O RECORD Last administered on 06/30/16 19:39; Start 06/30/16 at 19:00 Pantoprazole Sodium (Protonix Vial) 40 mg 1X ONCE IVP Last administered on 19:14; Start 06/30/16 at 19:00; Stop 06/30/16 at 19:01; Status DC Pantoprazole Sodium 80 mg/ Sodium Chloride 100 ml @ 10 mls/hr 1X ONCE IV Last administered on 06/30/16 19:13; Start 06/30/16 at 19:00; Stop 07/01/16 at 04:59; Status DC Ondansetron HCl (Zofran) 4 mg PRN Q8HRS PRN IV NAUSEA/VOMITING; Start 06/30/16 at 19:45; Stop 06/30/16 at 20:42; Status DC Acetaminophen (Tylenol) 650 mg PRN Q4HRS PRN PO FEVER; Start 06/30/16 at 19:45 ; Stop 07/01/16 at 19:44 Fentanyl Citrate (Fentanyl 2ml Vial) 50 mcg PRN Q2HR PRN IV PAIN Last administered on 07/01/16 01:35; Start 06/30/16 at 19:45 Ondansetron HCl (Zofran) 8 mg PRN Q8HRS PRN IV NAUSEA/VOMITING; Start 06/30/16 at 20:45 Lorazepam (Ativan) 2 mg PRN Q4HRS PRN IV ANXIETY / AGITATION Last administered on 07/01/16 00:32; Start 06/30/16 at 20:45 Phytonadione 10 mg/Sodium Chloride 51 ml @ 102 mls/hr 1X ONCE IV Last administered on 06/30/16 22:25; Start 06/30/16 at 21:00; Stop 06/30/16 at 21:29 ; Status DC Insulin Aspart (NovoLOG) 0-9 UNITS QIDACHS SQ ; Start 06/30/16 at 21:00 Dextrose (Dextrose 50%-Water Syringe) 12.5 gm PRN Q15MIN PRN IV SEE COMMENTS; Start 06/30/16 at 21:00 Insulin Detemir (Levemir) QHS SQ ; Start 06/30/16 at 21:00; Stop 06/30/16 at 21 :01; Status DC Insulin Detemir (Levemir) 5 units QHS SQ ; Start 06/30/16 at 21:15 Midazolam HCl (Versed) 5 mg STK-MED ONCE .ROUTE ; Start 06/30/16 at 21:05; Stop 06/30/16 at 21:06; Status DC Fentanyl Citrate (Fentanyl 2ml Vial) 100 mcg STK-MED ONCE .ROUTE ; Start at 21:05; Stop 06/30/16 at 21:06; Status DC Diphenhydramine HCl (Benadryl) 50 mg STK-MED ONCE .ROUTE ; Start 06/30/16 at 21: 05; Stop 06/30/16 at 21:06; Status DC Gabapentin (Neurontin) 300 mg TID PO Last administered on 07/01/16 09:03; Start 07/01/16 at 09:00 Diphenhydramine HCl (Benadryl) 50 mg STK-MED ONCE IV Last administered on 21:20; Start 06/30/16 at 21:20; Stop 06/30/16 at 21:26; Status DC Verapamil HCl (Verapamil) 5 mg STK-MED ONCE IV Last administered on 06/30/16 21:21; Start 06/30/16 at 21:21; Stop 06/30/16 at 21:26; Status DC Fentanyl Citrate (Fentanyl 2ml Vial) 100 mcg STK-MED ONCE IV Last administered on 06/30/16 21:21; Start 06/30/16 at 21:21; Stop 06/30/16 at 21:27; Status DC Midazolam HCl (Versed) 5 mg STK-MED ONCE IV Last administered on 06/30/16 21: 24; Start 06/30/16 at 21:24; Stop 06/30/16 at 21:27; Status DC Fentanyl Citrate (Fentanyl 2ml Vial) 100 mcg STK-MED ONCE IV Last administered on 06/30/16 21:24; Start 06/30/16 at 21:24; Stop 06/30/16 at 21:27; Status DC Midazolam HCl (Versed) 5 mg STK-MED ONCE IV Last administered on 06/30/16 21: 28; Start 06/30/16 at 21:28; Stop 06/30/16 at 21:30; Status DC Epinephrine HCl (Adrenalin) 1 mg STK-MED ONCE .ROUTE ; Start 06/30/16 at 21:36; Stop 06/30/16 at 21:37; Status DC Epinephrine HCl (EPINEPHrine SYRINGE) 1 mg STK-MED ONCE .ROUTE ; Start 06/30/16 at 21:39; Stop 06/30/16 at 21:40; Status DC Epinephrine HCl (EPINEPHrine SYRINGE) 1 mg STK-MED ONCE .ROUTE ; Start 06/30/16 at 21:43; Stop 06/30/16 at 21:44; Status DC Gabapentin (Neurontin) 300 mg 1X ONCE PO Last administered on 06/30/16t 22:31 ; Start 06/30/16 at 22:30; Stop 06/30/16 at 22:31; Status DC Pantoprazole Sodium 80 mg/ Sodium Chloride 100 ml @ 10 mls/hr Q10H IV Last administered on 07/01/16t 04:34; Start 07/01/16 at 04:00 Epinephrine HCl (EPINEPHrine SYRINGE) 2 mg STK-MED ONCE .ROUTE ; Start 06/30/16 at 21:00; Stop 07/01/16 at 08:38; Status DC Epinephrine HCl (Adrenalin) 1 mg STK-MED ONCE .ROUTE ; Start 06/30/16 at 21:00; Stop 07/01/16 at 08:38; Status DC Vitals/I & O Vital Sign - Last 24 Hours 06/30/16 06/30/16 06/30/16 06/30/16 18:46 19:04 19:34 20:04 Temp 98.2 98.2 Pulse 93 84 80 78 Resp 11 20 21 B/P (MAP) 135/63 (87) 128/58 (81) 130/60 (83) 136/62 (86) Pulse Ox 98 94 91 95 O2 Delivery Room Air Room Air Room Air Room Air 06/30/16 06/30/16 06/30/16 06/30/16 20:40 21:00 21:13 21:27 Temp 98.2 98.2 98.2 98.2 Pulse 82 80 80 Resp 20 18 20 B/P (MAP) 138/70 (92) Pulse Ox 98 100 98 O2 Delivery Room Air Room Air 06/30/16 06/30/16 06/30/16 06/30/16 21:30 21:35 21:40 21:45 Pulse 83 76 75 73 Resp 20 20 20 20 Pulse Ox 99 99 98 98 O2 Delivery Nasal Cannula Nasal Cannula Nasal Cannula Nasal Cannula O2 Flow Rate 2 2 2 2 06/30/16 06/30/16 06/30/16 06/30/16 21:50 21:53 22:00 23:00 Temp 98.2 98.2 Pulse 95 83 79 75 Resp 20 20 20 18 B/P (MAP) 137/46 110/70 (83) 117/77 (90) Pulse Ox 97 100 98 98 O2 Delivery Nasal Cannula Nasal Cannula Room Air Room Air O2 Flow Rate 2 2 06/30/16 07/01/16 07/01/16 07/01/16 23:59 00:00 01:00 02:00 Pulse 80 71 66 Resp 18 18 18 B/P (MAP) 110/77 (88) 109/70 (83) 98/47 (64) Pulse Ox 98 98 98 O2 Delivery Room Air Room Air Room Air Room Air 07/01/16 07/01/16 07/01/16 07/01/16 02:05 03:00 04:00 04:00 Temp 98.7 98.7 Pulse 66 63 Resp 18 18 18 B/P (MAP) 103/47 (65) 111/47 (68) Pulse Ox 98 97 O2 Delivery Room Air Room Air Room Air Room Air 07/01/16 07/01/16 07/01/16 07/01/16 05:00 06:00 07:18 08:00 Temp 98.6 98.6 Pulse 64 65 62 68 Resp 18 18 18 20 B/P (MAP) 127/52 (77) 103/46 (65) 107/49 (68) 106/50 (68) Pulse Ox 98 98 99 96 O2 Delivery Room Air Room Air Room Air Nasal Cannula O2 Flow Rate 2.0 07/01/16 09:00 Pulse 65 Resp 19 B/P (MAP) 97/42 (60) Pulse Ox 96 O2 Delivery Nasal Cannula O2 Flow Rate 2.0 Intake and Output 06/30/16 06/30/16 07/01/16 15:00 23:00 07:00 Intake Total 970 ml Output Total 1075 ml Balance -105 ml RAMONITA HINTON MD July 01, 2016 09:26
[2016-07-01] MEDS ORDERED: NORMAL SALINE IV ONE (09:30)
[2016-07-01 12:03] LABS: HEMATOCRIT 22.5 % (39.0-53.0); HEMOGLOBIN 7.9 g/dL (13.0-17.5); RED BLOOD COUNT 2.45 x10^6/uL (4.30-5.70); RED CELL DISTRIBUTION WIDTH 16.9 % (11.5-14.5); WHITE BLOOD COUNT 8.9 x10^3/uL (4.0-11.0)
[2016-07-01] MEDS: IV NORMAL SALINE 1000ML BAG 1,000 ML IV SCH ×2 (16:02→22:32)
[2016-07-01 18:10] LABS: HEMATOCRIT 23.5 % (39.0-53.0); HEMOGLOBIN 8.3 g/dL (13.0-17.5); RED BLOOD COUNT 2.6 x10^6/uL (4.30-5.70); RED CELL DISTRIBUTION WIDTH 17.2 % (11.5-14.5); WHITE BLOOD COUNT 8.4 x10^3/uL (4.0-11.0)
[2016-07-01] MEDS: ONDANSETRON PF 4 MG/2 ML VIAL. IV PRN (21:15)
[2016-07-01] MEDS: INSULIN DETEMIR 300 UNITS/3 ML INSULN.PEN. SQ SCH (21:17)
[2016-07-02] VITALS (27 sets, daily range): BP systolic 104–155; BP diastolic 39–82
[2016-07-02 00:53] LABS: HEMATOCRIT 23.3 % (39.0-53.0); HEMOGLOBIN 8.3 g/dL (13.0-17.5); RED BLOOD COUNT 2.56 x10^6/uL (4.30-5.70); RED CELL DISTRIBUTION WIDTH 17.2 % (11.5-14.5); WHITE BLOOD COUNT 8.3 x10^3/uL (4.0-11.0)
[2016-07-02] MEDS: PANTOPRAZOLE SODIUM IV 80 MG in IV NORMAL SALINE 100ML 100 ML IV SCH ×2 (01:19→14:05)
[2016-07-02] MEDS: INSULIN ASPART 300 UNITS/3 ML INSULN.PEN SQ SCH ×4 (07:30→20:54)
[2016-07-02 08:35] LABS: HEMOGLOBIN 7.1 g/dL (13.0-17.5); RED BLOOD COUNT 2.19 x10^6/uL (4.30-5.70); RED CELL DISTRIBUTION WIDTH 17.4 % (11.5-14.5); WHITE BLOOD COUNT 4.9 x10^3/uL (4.0-11.0)
[2016-07-02] MEDS: GABAPENTIN 300 MG CAPSULE. PO SCH ×3 (08:41→20:52)
[2016-07-02 08:45] LABS: HEMATOCRIT 20.1 % (39.0-53.0)
--- NOTE | 2016-07-02 09:11 | PDOC ---
Subjective: Subjective: Leg pain overnight. No bleeding. Occasional abd discomfort. Tolerating clears. Objective: Objective: Per RN - no bleeding. Vital Signs: Vital Signs Date Time Temp Pulse Resp B/P (MAP) Pulse Ox O2 Delivery O2 Flow Rate FiO2 07/02/16 06:00 59 16 134/82 (99) 97 Nasal Cannula 2.0 07/02/16 04:00 99.0 99.0 Labs: Laboratory Tests Test 07/01/16 11:43 07/01/16 11:50 07/01/16 17:53 07/01/16 18:03 Glucose (Fingerstick) 179 mg/dL 265 mg/dL White Blood Count 8.9 x10^3/uL 8.4 x10^3/uL Red Blood Count 2.45 x10^6/uL 2.60 x10^6/uL Hemoglobin 7.9 g/dL 8.3 g/dL Hematocrit 22.5 % 23.5 % Mean Corpuscular Volume 92 fL 90 fL Mean Corpuscular Hemoglobin 32 pg 32 pg Mean Corpuscular Hemoglobin Concent 35 g/dL 35 g/dL Red Cell Distribution Width 16.9 % 17.2 % Platelet Count 99 x10^3/uL 106 x10^3/uL Test 07/01/16 21:01 07/02/16 00:45 07/02/16 08:05 07/02/16 08:30 Glucose (Fingerstick) 278 mg/dL 126 mg/dL White Blood Count 8.3 x10^3/uL 4.9 x10^3/uL Red Blood Count 2.56 x10^6/uL 2.19 x10^6/uL Hemoglobin 8.3 g/dL 7.1 g/dL Hematocrit 23.3 % 20.1 % Mean Corpuscular Volume 91 fL 92 fL Mean Corpuscular Hemoglobin 32 pg 32 pg Mean Corpuscular Hemoglobin Concent 35 g/dL 35 g/dL Red Cell Distribution Width 17.2 % 17.4 % Platelet Count 102 x10^3/uL 83 x10^3/uL PE: GEN: NAD, was asleep LUNGS: CTAB anteriorly HEART: RRR ABD: S/ND/NT NEURO/PSYCH: A & O 3, drowsy A/P: Coffee-ground emesis - no recurrence Hep C cirrhosis s/p TIPS, thrombocytopenia Gastric ulcer w/ clot s/p EGD 06/30/16 Anemia -Hgb dropping -- D/w Dr. Walter. Transfuse another unit pRBCs, back to NPO, repeat EGD this evening. Continue PPI. D/w ICU staff, GI lab. BETO IQBAL July 02, 2016 09:11
--- NOTE | 2016-07-02 09:55 | PDOC ---
PROGRESS NOTES Chief Complaint Chief Complaint cc: coffe ground emesis A/P Coffee-ground emesis, : s/p PRBC, Gastric ulcer w/ clot s/p EGD 06/30/16,: On Protonix gtt, with octreotide drip, frequent monitoring of hemogram. Mild hypotension: usually HTN, NS bolus times and add IVNS at 75mls/hr. DM2 with hyperglycemia, : NPO, SSI, hold home medications. hx Hep C cirrhosis s/p TIPS, thrombocytopenia Anemia: acute blood loss, S/P 2 PRBC. prognosis guarded. History of Present Illness History of Present Illness no fever no chills no emesis Vitals Vitals Vital Signs Date Time Temp Pulse Resp B/P (MAP) Pulse Ox O2 Delivery O2 Flow Rate FiO2 07/02/16 06:00 59 16 134/82 (99) 97 Nasal Cannula 2.0 07/02/16 04:00 99.0 99.0 Physical Exam General: Alert, Oriented X3, Cooperative, No acute distress Heart: Normal S1, Normal S2 Lungs: Clear Abdomen: Normal bowel sounds, Soft Extremities: No cyanosis, No edema, Normal pulses Skin: No significant lesion Labs LABS Laboratory Tests Test 07/01/16 11:43 07/01/16 11:50 07/01/16 17:53 07/01/16 18:03 Glucose (Fingerstick) 179 mg/dL (70-99) 265 mg/dL (70-99) White Blood Count 8.9 x10^3/uL (4.0-11.0) 8.4 x10^3/uL (4.0-11.0) Red Blood Count 2.45 x10^6/uL (4.30-5.70) 2.60 x10^6/uL (4.30-5.70) Hemoglobin 7.9 g/dL (13.0-17.5) 8.3 g/dL (13.0-17.5) Hematocrit 22.5 % (39.0-53.0) 23.5 % (39.0-53.0) Mean Corpuscular Volume 92 fL (79-100) 90 fL (79-100) Mean Corpuscular Hemoglobin 32 pg (25-35) 32 pg (25-35) Mean Corpuscular Hemoglobin Concent 35 g/dL (31-37) 35 g/dL (31-37) Red Cell Distribution Width 16.9 % (11.5-14.5) 17.2 % (11.5-14.5) Platelet Count 99 x10^3/uL (140-400) 106 x10^3/uL (140-400) Test 07/01/16 21:01 07/02/16 00:45 07/02/16 08:05 07/02/16 08:30 Glucose (Fingerstick) 278 mg/dL (70-99) 126 mg/dL (70-99) White Blood Count 8.3 x10^3/uL (4.0-11.0) 4.9 x10^3/uL (4.0-11.0) Red Blood Count 2.56 x10^6/uL (4.30-5.70) 2.19 x10^6/uL (4.30-5.70) Hemoglobin 8.3 g/dL (13.0-17.5) 7.1 g/dL (13.0-17.5) Hematocrit 23.3 % (39.0-53.0) 20.1 % (39.0-53.0) Mean Corpuscular Volume 91 fL (79-100) 92 fL (79-100) Mean Corpuscular Hemoglobin 32 pg (25-35) 32 pg (25-35) Mean Corpuscular Hemoglobin Concent 35 g/dL (31-37) 35 g/dL (31-37) Red Cell Distribution Width 17.2 % (11.5-14.5) 17.4 % (11.5-14.5) Platelet Count 102 x10^3/uL (140-400) 83 x10^3/uL (140-400) Assessment and Plan Assessmemt and Plan Problems Medical Problems: (1) Esophageal varices Status: Acute (2) Liver cirrhosis Status: Acute (3) Upper GI bleed Status: Acute Problems: Comment Review of Relevant I have reviewed the following items heriberto (where applicable) has been applied. Labs Laboratory Tests Test 06/30/16 18:42 06/30/16 19:32 06/30/16 21:00 07/01/16 05:10 Stool Occult Blood Positive (NEG) White Blood Count 15.1 x10^3/uL (4.0-11.0) 10.9 x10^3/uL (4.0-11.0) Red Blood Count 2.51 x10^6/uL (4.30-5.70) 2.69 x10^6/uL (4.30-5.70) Hemoglobin 7.9 g/dL (13.0-17.5) 8.6 g/dL (13.0-17.5) Hematocrit 22.8 % (39.0-53.0) 24.4 % (39.0-53.0) Mean Corpuscular Volume 91 fL (79-100) 91 fL (79-100) Mean Corpuscular Hemoglobin 31 pg (25-35) 32 pg (25-35) Mean Corpuscular Hemoglobin Concent 35 g/dL (31-37) 35 g/dL (31-37) Red Cell Distribution Width 17.9 % (11.5-14.5) 17.0 % (11.5-14.5) Platelet Count 154 x10^3/uL (140-400) 109 x10^3/uL (140-400) Neutrophils (%) (Auto) 90 % (31-73) 75 % (31-73) Lymphocytes (%) (Auto) 5 % (24-48) 15 % (24-48) Monocytes (%) (Auto) 5 % (0-9) 7 % (0-9) Eosinophils (%) (Auto) 0 % (0-3) 3 % (0-3) Basophils (%) (Auto) 0 % (0-3) 0 % (0-3) Neutrophils # (Auto) 13.5 x10^3uL (1.8-7.7) 8.1 x10^3uL (1.8-7.7) Lymphocytes # (Auto) 0.7 x10^3/uL (1.0-4.8) 1.7 x10^3/uL (1.0-4.8) Monocytes # (Auto) 0.7 x10^3/uL (0.0-1.1) 0.7 x10^3/uL (0.0-1.1) Eosinophils # (Auto) 0.1 x10^3/uL (0.0-0.7) 0.3 x10^3/uL (0.0-0.7) Basophils # (Auto) 0.1 x10^3/uL (0.0-0.2) 0.0 x10^3/uL (0.0-0.2) Segmented Neutrophils % 91 % (35-66) Lymphocytes % 5 % (24-48) Monocytes % 3 % (0-10) Metamyelocytes % 1 % (0-0) Platelet Estimate Adequate (ADEQUATE) Polychromasia Slight Poikilocytosis Slight Anisocytosis Slight Macrocytosis Slight Ovalocytes Few Prothrombin Time 16.8 SEC (11.7-14.0) Prothromb Time International Ratio 1.5 (0.8-1.1) Activated Partial Thromboplast Time 26 SEC (24-38) Sodium Level 137 mmol/L (136-145) 140 mmol/L (136-145) Potassium Level 4.3 mmol/L (3.5-5.1) 4.0 mmol/L (3.5-5.1) Chloride Level 104 mmol/L (98-107) 108 mmol/L (98-107) Carbon Dioxide Level 23 mmol/L (21-32) 26 mmol/L (21-32) Anion Gap 10 (6-14) 6 (6-14) Blood Urea Nitrogen 46 mg/dL (8-26) 41 mg/dL (8-26) Creatinine 1.1 mg/dL (0.7-1.3) 1.1 mg/dL (0.7-1.3) Estimated GFR (Cockcroft-Gault) 69.0 69.0 Glucose Level 340 mg/dL (70-99) 197 mg/dL (70-99) Calcium Level 8.8 mg/dL (8.5-10.1) 8.1 mg/dL (8.5-10.1) Total Bilirubin 3.2 mg/dL (0.2-1.0) 2.5 mg/dL (0.2-1.0) Direct Bilirubin 0.8 mg/dL (0.0-0.2) Aspartate Amino Transf (AST/SGOT) 24 U/L (15-37) 22 U/L (15-37) Alanine Aminotransferase (ALT/SGPT) 25 U/L (16-63) 22 U/L (16-63) Alkaline Phosphatase 62 U/L (46-116) 52 U/L (46-116) Total Protein 5.8 g/dL (6.4-8.2) 5.4 g/dL (6.4-8.2) Albumin 2.7 g/dL (3.4-5.0) 2.4 g/dL (3.4-5.0) Nasal Screen MRSA (PCR) Negative (Negative) BUN/Creatinine Ratio 37 (6-20) Albumin/Globulin Ratio 0.8 (1.0-1.7) Test 07/01/16 07:54 07/01/16 11:43 07/01/16 11:50 07/01/16 17:53 Glucose (Fingerstick) 192 mg/dL (70-99) 179 mg/dL (70-99) 265 mg/dL (70-99) White Blood Count 8.9 x10^3/uL (4.0-11.0) Red Blood Count 2.45 x10^6/uL (4.30-5.70) Hemoglobin 7.9 g/dL (13.0-17.5) Hematocrit 22.5 % (39.0-53.0) Mean Corpuscular Volume 92 fL (79-100) Mean Corpuscular Hemoglobin 32 pg (25-35) Mean Corpuscular Hemoglobin Concent 35 g/dL (31-37) Red Cell Distribution Width 16.9 % (11.5-14.5) Platelet Count 99 x10^3/uL (140-400) Test 07/01/16 18:03 07/01/16 21:01 07/02/16 00:45 07/02/16 08:05 White Blood Count 8.4 x10^3/uL (4.0-11.0) 8.3 x10^3/uL (4.0-11.0) 4.9 x10^3/uL (4.0-11.0) Red Blood Count 2.60 x10^6/uL (4.30-5.70) 2.56 x10^6/uL (4.30-5.70) 2.19 x10^6/uL (4.30-5.70) Hemoglobin 8.3 g/dL (13.0-17.5) 8.3 g/dL (13.0-17.5) 7.1 g/dL (13.0-17.5) Hematocrit 23.5 % (39.0-53.0) 23.3 % (39.0-53.0) 20.1 % (39.0-53.0) Mean Corpuscular Volume 90 fL (79-100) 91 fL (79-100) 92 fL (79-100) Mean Corpuscular Hemoglobin 32 pg (25-35) 32 pg (25-35) 32 pg (25-35) Mean Corpuscular Hemoglobin Concent 35 g/dL (31-37) 35 g/dL (31-37) 35 g/dL (31-37) Red Cell Distribution Width 17.2 % (11.5-14.5) 17.2 % (11.5-14.5) 17.4 % (11.5-14.5) Platelet Count 106 x10^3/uL (140-400) 102 x10^3/uL (140-400) 83 x10^3/uL (140-400) Glucose (Fingerstick) 278 mg/dL (70-99) Test 07/02/16 08:30 Glucose (Fingerstick) 126 mg/dL (70-99) Laboratory Tests Test 07/01/16 11:43 07/01/16 11:50 07/01/16 17:53 07/01/16 18:03 Glucose (Fingerstick) 179 mg/dL (70-99) 265 mg/dL (70-99) White Blood Count 8.9 x10^3/uL (4.0-11.0) 8.4 x10^3/uL (4.0-11.0) Red Blood Count 2.45 x10^6/uL (4.30-5.70) 2.60 x10^6/uL (4.30-5.70) Hemoglobin 7.9 g/dL (13.0-17.5) 8.3 g/dL (13.0-17.5) Hematocrit 22.5 % (39.0-53.0) 23.5 % (39.0-53.0) Mean Corpuscular Volume 92 fL (79-100) 90 fL (79-100) Mean Corpuscular Hemoglobin 32 pg (25-35) 32 pg (25-35) Mean Corpuscular Hemoglobin Concent 35 g/dL (31-37) 35 g/dL (31-37) Red Cell Distribution Width 16.9 % (11.5-14.5) 17.2 % (11.5-14.5) Platelet Count 99 x10^3/uL (140-400) 106 x10^3/uL (140-400) Test 07/01/16 21:01 07/02/16 00:45 07/02/16 08:05 07/02/16 08:30 Glucose (Fingerstick) 278 mg/dL (70-99) 126 mg/dL (70-99) White Blood Count 8.3 x10^3/uL (4.0-11.0) 4.9 x10^3/uL (4.0-11.0) Red Blood Count 2.56 x10^6/uL (4.30-5.70) 2.19 x10^6/uL (4.30-5.70) Hemoglobin 8.3 g/dL (13.0-17.5) 7.1 g/dL (13.0-17.5) Hematocrit 23.3 % (39.0-53.0) 20.1 % (39.0-53.0) Mean Corpuscular Volume 91 fL (79-100) 92 fL (79-100) Mean Corpuscular Hemoglobin 32 pg (25-35) 32 pg (25-35) Mean Corpuscular Hemoglobin Concent 35 g/dL (31-37) 35 g/dL (31-37) Red Cell Distribution Width 17.2 % (11.5-14.5) 17.4 % (11.5-14.5) Platelet Count 102 x10^3/uL (140-400) 83 x10^3/uL (140-400) Medications Current Medications Octreotide Acetate (SandoSTATIN) 50 mcg 1X ONCE IV Last administered on 19:18; Start 06/30/16 at 19:00; Stop 07/01/16 at 09:11; Status DC Octreotide Acetate 500 mcg/ Sodium Chloride 101 ml @ 0 mls/hr CONT PRN IV SEE I /O RECORD Last administered on 06/30/16 19:39; Start 06/30/16 at 19:00; Stop at 15:04; Status DC Pantoprazole Sodium (Protonix Vial) 40 mg 1X ONCE IVP Last administered on 19:14; Start 06/30/16 at 19:00; Stop 06/30/16 at 19:01; Status DC Pantoprazole Sodium 80 mg/ Sodium Chloride 100 ml @ 10 mls/hr 1X ONCE IV Last administered on 06/30/16 19:13; Start 06/30/16 at 19:00; Stop 07/01/16 at 04:59; Status DC Ondansetron HCl (Zofran) 4 mg PRN Q8HRS PRN IV NAUSEA/VOMITING; Start 06/30/16 at 19:45; Stop 06/30/16 at 20:42; Status DC Acetaminophen (Tylenol) 650 mg PRN Q4HRS PRN PO FEVER; Start 06/30/16 at 19:45 ; Stop 07/01/16 at 19:44; Status DC Fentanyl Citrate (Fentanyl 2ml Vial) 50 mcg PRN Q2HR PRN IV PAIN Last administered on 07/01/16 01:35; Start 06/30/16 at 19:45 Ondansetron HCl (Zofran) 8 mg PRN Q8HRS PRN IV NAUSEA/VOMITING Last administered on 07/01/16 21:15; Start 06/30/16 at 20:45 Lorazepam (Ativan) 2 mg PRN Q4HRS PRN IV ANXIETY / AGITATION Last administered on 07/02/16 01:19; Start 06/30/16 at 20:45 Phytonadione 10 mg/Sodium Chloride 51 ml @ 102 mls/hr 1X ONCE IV Last administered on 06/30/16 22:25; Start 06/30/16 at 21:00; Stop 06/30/16 at 21:29 ; Status DC Insulin Aspart (NovoLOG) 0-9 UNITS QIDACHS SQ Last administered on 07/01/16 21 :19; Start 06/30/16 at 21:00 Dextrose (Dextrose 50%-Water Syringe) 12.5 gm PRN Q15MIN PRN IV SEE COMMENTS; Start 06/30/16 at 21:00 Insulin Detemir (Levemir) QHS SQ ; Start 06/30/16 at 21:00; Stop 06/30/16 at 21 :01; Status DC Insulin Detemir (Levemir) 5 units QHS SQ Last administered on 07/01/16 21:17; Start 06/30/16 at 21:15 Midazolam HCl (Versed) 5 mg STK-MED ONCE .ROUTE ; Start 06/30/16 at 21:05; Stop 06/30/16 at 21:06; Status DC Fentanyl Citrate (Fentanyl 2ml Vial) 100 mcg STK-MED ONCE .ROUTE ; Start at 21:05; Stop 06/30/16 at 21:06; Status DC Diphenhydramine HCl (Benadryl) 50 mg STK-MED ONCE .ROUTE ; Start 06/30/16 at 21: 05; Stop 06/30/16 at 21:06; Status DC Gabapentin (Neurontin) 300 mg TID PO Last administered on 07/02/16 08:41; Start 07/01/16 at 09:00 Diphenhydramine HCl (Benadryl) 50 mg STK-MED ONCE IV Last administered on 21:20; Start 06/30/16 at 21:20; Stop 06/30/16 at 21:26; Status DC Verapamil HCl (Verapamil) 5 mg STK-MED ONCE IV Last administered on 06/30/16 21:21; Start 06/30/16 at 21:21; Stop 06/30/16 at 21:26; Status DC Fentanyl Citrate (Fentanyl 2ml Vial) 100 mcg STK-MED ONCE IV Last administered on 06/30/16 21:21; Start 06/30/16 at 21:21; Stop 06/30/16 at 21:27; Status DC Midazolam HCl (Versed) 5 mg STK-MED ONCE IV Last administered on 06/30/16 21: 24; Start 06/30/16 at 21:24; Stop 06/30/16 at 21:27; Status DC Fentanyl Citrate (Fentanyl 2ml Vial) 100 mcg STK-MED ONCE IV Last administered on 06/30/16 21:24; Start 06/30/16 at 21:24; Stop 06/30/16 at 21:27; Status DC Midazolam HCl (Versed) 5 mg STK-MED ONCE IV Last administered on 06/30/16 21: 28; Start 06/30/16 at 21:28; Stop 06/30/16 at 21:30; Status DC Epinephrine HCl (Adrenalin) 1 mg STK-MED ONCE .ROUTE ; Start 06/30/16 at 21:36; Stop 06/30/16 at 21:37; Status DC Epinephrine HCl (EPINEPHrine SYRINGE) 1 mg STK-MED ONCE .ROUTE ; Start 06/30/16 at 21:39; Stop 06/30/16 at 21:40; Status DC Epinephrine HCl (EPINEPHrine SYRINGE) 1 mg STK-MED ONCE .ROUTE ; Start 06/30/16 at 21:43; Stop 06/30/16 at 21:44; Status DC Gabapentin (Neurontin) 300 mg 1X ONCE PO Last administered on 06/30/16 22:31 ; Start 06/30/16 at 22:30; Stop 06/30/16 at 22:31; Status DC Pantoprazole Sodium 80 mg/ Sodium Chloride 100 ml @ 10 mls/hr Q10H IV Last administered on 07/02/16 01:19; Start 07/01/16 at 04:00 Epinephrine HCl (EPINEPHrine SYRINGE) 2 mg STK-MED ONCE .ROUTE ; Start 06/30/16 at 21:00; Stop 07/01/16 at 08:38; Status DC Epinephrine HCl (Adrenalin) 1 mg STK-MED ONCE .ROUTE ; Start 06/30/16 at 21:00; Stop 07/01/16 at 08:38; Status DC Sodium Chloride 100 ml @ 999 mls/hr 1X ONCE IV Last administered on 09:30; Start 07/01/16 at 09:30; Stop 07/01/16 at 12:33; Status DC Sodium Chloride 1,000 ml @ 70 mls/hr [id number] IV Last administered on 22:32; Start 07/01/16 at 10:00 Vitals/I & O Vital Sign - Last 24 Hours 07/01/16 07/01/16 07/01/16 07/01/16 10:00 11:00 12:00 12:00 Pulse 64 64 64 Resp 19 20 20 B/P (MAP) 110/46 (67) 103/48 (66) 105/38 (60) Pulse Ox 98 96 96 O2 Delivery Nasal Cannula Nasal Cannula Nasal Cannula Nasal Cannula O2 Flow Rate 2.0 2.0 2.0 2.0 07/01/16 07/01/16 07/01/16 07/01/16 13:00 14:00 15:00 16:00 Temp 97.9 97.9 Pulse 64 64 64 63 Resp 18 18 18 20 B/P (MAP) 98/40 (59) 110/47 (68) 98/43 (61) 115/48 (70) Pulse Ox 96 96 97 96 O2 Delivery Nasal Cannula Nasal Cannula Nasal Cannula Nasal Cannula O2 Flow Rate 2.0 2.0 2.0 2.0 07/01/16 07/01/16 07/01/16 07/01/16 16:00 17:00 18:00 19:00 Pulse 70 72 70 Resp 20 20 12 B/P (MAP) 130/46 (74) 146/54 (84) 149/56 (87) Pulse Ox 97 97 96 O2 Delivery Nasal Cannula Nasal Cannula Nasal Cannula Nasal Cannula O2 Flow Rate 2.0 2.0 2.0 2.0 07/01/16 07/01/16 07/01/16 07/01/16 20:00 20:00 21:00 22:00 Temp 98.7 98.7 Pulse 69 72 69 Resp 16 12 14 B/P (MAP) 129/45 (73) 145/58 (87) 152/57 (88) Pulse Ox 97 94 97 O2 Delivery Room Air Room Air Room Air Room Air 07/01/16 07/01/16 07/02/16 07/02/16 23:00 23:59 00:00 01:00 Temp 98.6 98.6 Pulse 71 73 75 Resp 14 14 14 B/P (MAP) 140/60 (86) 137/55 (82) 131/47 (75) Pulse Ox 95 93 92 O2 Delivery Room Air Room Air Room Air Room Air 07/02/16 07/02/16 07/02/16 07/02/16 02:00 03:00 04:00 04:00 Temp 99.0 99.0 Pulse 77 72 71 Resp 14 14 14 B/P (MAP) 135/39 (71) 129/39 (69) 135/39 (71) Pulse Ox 93 94 95 O2 Delivery Room Air Room Air Room Air Room Air 07/02/16 07/02/16 05:00 06:00 Pulse 63 59 Resp 14 16 B/P (MAP) 104/48 (66) 134/82 (99) Pulse Ox 97 97 O2 Delivery Nasal Cannula Nasal Cannula O2 Flow Rate 2.0 2.0 Intake and Output 07/01/16 07/01/16 07/02/16 15:00 23:00 07:00 Intake Total 580 ml 782 ml 1870 ml Output Total 550 ml 650 ml 900 ml Balance 30 ml 132 ml 970 ml RAMONITA HINTON MD July 02, 2016 09:55
[2016-07-02] MEDS: IV NORMAL SALINE 1000ML BAG 1,000 ML IV SCH ×2 (12:06→23:53)
[2016-07-02] MEDS ORDERED: IV RINGERS,LACTATED 1000ML 1,000 ML IV SCH (14:06)
[2016-07-02] MEDS ORDERED: PROPOFOL 20 ML IV ONE (15:02)
--- NOTE | 2016-07-02 15:35 | PDOC4 ---
Operative Note Operative Note EGD Meds propofol Pre-op dx cirrhosis/hx tips stenosis/hematemsis post-op dx gastric varix with umbilicus sign/nipple sign Plan doppler study of tips for possible restenosis if patent, then [facility] transfer for acrynlate glue injections AV WOOD MD July 02, 2016 15:35
[2016-07-02 19:19] LABS: HEMATOCRIT 24.2 % (39.0-53.0); HEMOGLOBIN 8.4 g/dL (13.0-17.5)
[2016-07-02] MEDS: fentaNYL PF VIAL 100 MCG/2 ML VIAL IV PRN (20:53)
[2016-07-02] MEDS: INSULIN DETEMIR 300 UNITS/3 ML INSULN.PEN. SQ SCH (20:55)
[2016-07-03] VITALS (17 sets, daily range): BP systolic 102–156; BP diastolic 40–103
[2016-07-03] MEDS: PANTOPRAZOLE SODIUM IV 80 MG in IV NORMAL SALINE 100ML 100 ML IV SCH ×2 (00:12→10:47)
[2016-07-03] MEDS: fentaNYL PF VIAL 100 MCG/2 ML VIAL IV PRN ×3 (00:16→21:10)
[2016-07-03] MEDS: INSULIN ASPART 300 UNITS/3 ML INSULN.PEN SQ SCH ×4 (07:30→21:23)
[2016-07-03] MEDS: GABAPENTIN 300 MG CAPSULE. PO SCH ×3 (08:27→21:09)
--- NOTE | 2016-07-03 09:10 | RAD ---
Ultrasound TIPS evaluation, 07/02/2016: History: Recurrent gastric varices and bleeding Duplex evaluation of the patient's TIPS stent was performed utilizing grayscale, color-flow and spectral Doppler analysis. No previous studies are currently available for correlative purposes. The portal veins are patent and demonstrates a normal direction of flow. The TIPS is patent with a velocity of 48 cm/s at its portal end, 120 cm/s in the midportion of the stent and 190 cm/s at the hepatic vein and of the stent. The hepatic veins are patent. IMPRESSION: Patent TIPS with velocity measurements as described above.
[2016-07-03 09:16] LABS: BASO % 0 % (0-3); EOS % 5 % (0-3); HEMOGLOBIN 8.6 g/dL (13.0-17.5); LYMPH # 0.7 x10^3/uL (1.0-4.8); LYMPH % 13 % (24-48); MEAN CORPUSCULAR HEMOGLOBIN 32 pg (25-35); MEAN CORPUSCULAR HGB CONC 36 g/dL (31-37); MEAN CORPUSCULAR VOLUME 90 fL (79-100); MONO % 8 % (0-9); NEUT % 74 % (31-73); PLATELET COUNT 76 x10^3/uL (140-400); RED BLOOD COUNT 2.68 x10^6/uL (4.30-5.70); RED CELL DISTRIBUTION WIDTH 18.7 % (11.5-14.5)
--- NOTE | 2016-07-03 12:13 | PDOC ---
Subjective: Subjective: Feeling better. Dark stool yesterday evening. Feels hungry. Some LUQ pain last night, better now. Objective: Objective: D/w RN, Dr. Luciano. Dark stool yesterday after EGD. Wants to advance diet. Vital Signs: Vital Signs Date Time Temp Pulse Resp B/P (MAP) Pulse Ox O2 Delivery O2 Flow Rate FiO2 07/03/16 11:00 75 23 149/62 (91) 97 Room Air 07/03/16 08:00 98.0 98.0 07/03/16 07:00 2.0 Labs: Laboratory Tests Test 07/02/16 13:26 07/02/16 16:21 07/02/16 19:00 07/02/16 20:46 Glucose (Fingerstick) 159 mg/dL 149 mg/dL 315 mg/dL Hemoglobin 8.4 g/dL Hematocrit 24.2 % Test 07/03/16 08:29 07/03/16 08:41 Glucose (Fingerstick) 118 mg/dL White Blood Count 5.0 x10^3/uL Red Blood Count 2.68 x10^6/uL Hemoglobin 8.6 g/dL Hematocrit 24.0 % Mean Corpuscular Volume 90 fL Mean Corpuscular Hemoglobin 32 pg Mean Corpuscular Hemoglobin Concent 36 g/dL Red Cell Distribution Width 18.7 % Platelet Count 76 x10^3/uL Neutrophils (%) (Auto) 74 % Lymphocytes (%) (Auto) 13 % Monocytes (%) (Auto) 8 % Eosinophils (%) (Auto) 5 % Basophils (%) (Auto) 0 % Neutrophils # (Auto) 3.7 x10^3uL Lymphocytes # (Auto) 0.7 x10^3/uL Monocytes # (Auto) 0.4 x10^3/uL Eosinophils # (Auto) 0.2 x10^3/uL Basophils # (Auto) 0.0 x10^3/uL Imaging: EGD 07/02/16: gastric varix with umbilicus sign/nipple sign. Abd Doppler 07/02/16 IMPRESSION: Patent TIPS. PE: GEN: NAD LUNGS: CTAB anteriorly HEART: RRR ABD: NABS, S/ND/NT NEURO/PSYCH: A & O 3 A/P: Hep C cirrhosis s/p TIPS -patent as above Gastric varix Anemia, thrombocytopenia -Hgb improved/stable, 8.6 -plt down to 76 Coffee-ground emesis - resolved Melena - once yesterday -- D/w Dr. Walter. Okay to try diet and transfer to regular floor. D/w RN. D/w case management, re: gastric varix, will refer to [facility] for glue injections - at this point can pursue as outpt. Continue PPI, will change to IV push. BETO IQBAL July 03, 2016 12:13
[2016-07-03] MEDS: IV NORMAL SALINE 1000ML BAG 1,000 ML IV SCH (14:10)
[2016-07-03] MEDS: PANTOPRAZOLE IV PUSH 40 MG VIAL. IVP SCH (17:09)
--- NOTE | 2016-07-03 20:22 | PDOC ---
PROGRESS NOTES Chief Complaint Chief Complaint cc: coffe ground emesis A/P Coffee-ground emesis, : s/p PRBC, Gastric ulcer w/ clot s/p EGD 06/30/16,:s/p EGD on 07/02/16 On Protonix gtt, with octreotide drip,clear liquid diet, DM2 with hyperglycemia, : NPO, SSI, hold home medications. hx Hep C cirrhosis s/p TIPS, thrombocytopenia: US TIPS patent, Anemia: acute blood loss, S/P 3 PRBC. hemoglobin stable at 8.6, Possible DC in am if hemodynamically stable, out pt follow up with [facility] for Gastric variceal glue injections prognosis guarded. History of Present Illness History of Present Illness no fever no chills no emesis Vitals Vitals Vital Signs Date Time Temp Pulse Resp B/P (MAP) Pulse Ox O2 Delivery O2 Flow Rate FiO2 07/03/16 19:00 96.6 89 20 154/66 (95) 94 Room Air 96.6 07/03/16 07:00 2.0 Physical Exam General: Alert, Oriented X3, Cooperative, No acute distress Heart: Normal S1, Normal S2 Lungs: Clear Abdomen: Normal bowel sounds, Soft Extremities: No cyanosis, No edema, Normal pulses Skin: No significant lesion Labs LABS Laboratory Tests Test 07/02/16 20:46 07/03/16 08:29 07/03/16 08:41 07/03/16 12:06 Glucose (Fingerstick) 315 mg/dL (70-99) 118 mg/dL (70-99) 171 mg/dL (70-99) White Blood Count 5.0 x10^3/uL (4.0-11.0) Red Blood Count 2.68 x10^6/uL (4.30-5.70) Hemoglobin 8.6 g/dL (13.0-17.5) Hematocrit 24.0 % (39.0-53.0) Mean Corpuscular Volume 90 fL (79-100) Mean Corpuscular Hemoglobin 32 pg (25-35) Mean Corpuscular Hemoglobin Concent 36 g/dL (31-37) Red Cell Distribution Width 18.7 % (11.5-14.5) Platelet Count 76 x10^3/uL (140-400) Neutrophils (%) (Auto) 74 % (31-73) Lymphocytes (%) (Auto) 13 % (24-48) Monocytes (%) (Auto) 8 % (0-9) Eosinophils (%) (Auto) 5 % (0-3) Basophils (%) (Auto) 0 % (0-3) Neutrophils # (Auto) 3.7 x10^3uL (1.8-7.7) Lymphocytes # (Auto) 0.7 x10^3/uL (1.0-4.8) Monocytes # (Auto) 0.4 x10^3/uL (0.0-1.1) Eosinophils # (Auto) 0.2 x10^3/uL (0.0-0.7) Basophils # (Auto) 0.0 x10^3/uL (0.0-0.2) Test 07/03/16 16:52 Glucose (Fingerstick) 192 mg/dL (70-99) Assessment and Plan Assessmemt and Plan Problems Medical Problems: (1) Esophageal varices Status: Acute (2) Liver cirrhosis Status: Acute (3) Upper GI bleed Status: Acute Problems: Comment Review of Relevant I have reviewed the following items heriberto (where applicable) has been applied. Labs Laboratory Tests Test 07/01/16 21:01 07/02/16 00:45 07/02/16 08:05 07/02/16 08:30 Glucose (Fingerstick) 278 mg/dL (70-99) 126 mg/dL (70-99) White Blood Count 8.3 x10^3/uL (4.0-11.0) 4.9 x10^3/uL (4.0-11.0) Red Blood Count 2.56 x10^6/uL (4.30-5.70) 2.19 x10^6/uL (4.30-5.70) Hemoglobin 8.3 g/dL (13.0-17.5) 7.1 g/dL (13.0-17.5) Hematocrit 23.3 % (39.0-53.0) 20.1 % (39.0-53.0) Mean Corpuscular Volume 91 fL (79-100) 92 fL (79-100) Mean Corpuscular Hemoglobin 32 pg (25-35) 32 pg (25-35) Mean Corpuscular Hemoglobin Concent 35 g/dL (31-37) 35 g/dL (31-37) Red Cell Distribution Width 17.2 % (11.5-14.5) 17.4 % (11.5-14.5) Platelet Count 102 x10^3/uL (140-400) 83 x10^3/uL (140-400) Test 07/02/16 13:26 07/02/16 16:21 07/02/16 19:00 07/02/16 20:46 Glucose (Fingerstick) 159 mg/dL (70-99) 149 mg/dL (70-99) 315 mg/dL (70-99) Hemoglobin 8.4 g/dL (13.0-17.5) Hematocrit 24.2 % (39.0-53.0) Test 07/03/16 08:29 07/03/16 08:41 07/03/16 12:06 07/03/16 16:52 Glucose (Fingerstick) 118 mg/dL (70-99) 171 mg/dL (70-99) 192 mg/dL (70-99) White Blood Count 5.0 x10^3/uL (4.0-11.0) Red Blood Count 2.68 x10^6/uL (4.30-5.70) Hemoglobin 8.6 g/dL (13.0-17.5) Hematocrit 24.0 % (39.0-53.0) Mean Corpuscular Volume 90 fL (79-100) Mean Corpuscular Hemoglobin 32 pg (25-35) Mean Corpuscular Hemoglobin Concent 36 g/dL (31-37) Red Cell Distribution Width 18.7 % (11.5-14.5) Platelet Count 76 x10^3/uL (140-400) Neutrophils (%) (Auto) 74 % (31-73) Lymphocytes (%) (Auto) 13 % (24-48) Monocytes (%) (Auto) 8 % (0-9) Eosinophils (%) (Auto) 5 % (0-3) Basophils (%) (Auto) 0 % (0-3) Neutrophils # (Auto) 3.7 x10^3uL (1.8-7.7) Lymphocytes # (Auto) 0.7 x10^3/uL (1.0-4.8) Monocytes # (Auto) 0.4 x10^3/uL (0.0-1.1) Eosinophils # (Auto) 0.2 x10^3/uL (0.0-0.7) Basophils # (Auto) 0.0 x10^3/uL (0.0-0.2) Laboratory Tests Test 07/02/16 20:46 07/03/16 08:29 07/03/16 08:41 07/03/16 12:06 Glucose (Fingerstick) 315 mg/dL (70-99) 118 mg/dL (70-99) 171 mg/dL (70-99) White Blood Count 5.0 x10^3/uL (4.0-11.0) Red Blood Count 2.68 x10^6/uL (4.30-5.70) Hemoglobin 8.6 g/dL (13.0-17.5) Hematocrit 24.0 % (39.0-53.0) Mean Corpuscular Volume 90 fL (79-100) Mean Corpuscular Hemoglobin 32 pg (25-35) Mean Corpuscular Hemoglobin Concent 36 g/dL (31-37) Red Cell Distribution Width 18.7 % (11.5-14.5) Platelet Count 76 x10^3/uL (140-400) Neutrophils (%) (Auto) 74 % (31-73) Lymphocytes (%) (Auto) 13 % (24-48) Monocytes (%) (Auto) 8 % (0-9) Eosinophils (%) (Auto) 5 % (0-3) Basophils (%) (Auto) 0 % (0-3) Neutrophils # (Auto) 3.7 x10^3uL (1.8-7.7) Lymphocytes # (Auto) 0.7 x10^3/uL (1.0-4.8) Monocytes # (Auto) 0.4 x10^3/uL (0.0-1.1) Eosinophils # (Auto) 0.2 x10^3/uL (0.0-0.7) Basophils # (Auto) 0.0 x10^3/uL (0.0-0.2) Test 07/03/16 16:52 Glucose (Fingerstick) 192 mg/dL (70-99) Medications Current Medications Octreotide Acetate (SandoSTATIN) 50 mcg 1X ONCE IV Last administered on 19:18; Start 06/30/16 at 19:00; Stop 07/01/16 at 09:11; Status DC Octreotide Acetate 500 mcg/ Sodium Chloride 101 ml @ 0 mls/hr CONT PRN IV SEE I /O RECORD Last administered on 06/30/16 19:39; Start 06/30/16 at 19:00; Stop at 15:04; Status DC Pantoprazole Sodium (Protonix Vial) 40 mg 1X ONCE IVP Last administered on 19:14; Start 06/30/16 at 19:00; Stop 06/30/16 at 19:01; Status DC Pantoprazole Sodium 80 mg/ Sodium Chloride 100 ml @ 10 mls/hr 1X ONCE IV Last administered on 06/30/16 19:13; Start 06/30/16 at 19:00; Stop 07/01/16 at 04:59; Status DC Ondansetron HCl (Zofran) 4 mg PRN Q8HRS PRN IV NAUSEA/VOMITING; Start 06/30/16 at 19:45; Stop 06/30/16 at 20:42; Status DC Acetaminophen (Tylenol) 650 mg PRN Q4HRS PRN PO FEVER; Start 06/30/16 at 19:45 ; Stop 07/01/16 at 19:44; Status DC Fentanyl Citrate (Fentanyl 2ml Vial) 50 mcg PRN Q2HR PRN IV PAIN Last administered on 07/03/16 14:18; Start 06/30/16 at 19:45 Ondansetron HCl (Zofran) 8 mg PRN Q8HRS PRN IV NAUSEA/VOMITING Last administered on 07/01/16 21:15; Start 06/30/16 at 20:45 Lorazepam (Ativan) 2 mg PRN Q4HRS PRN IV ANXIETY / AGITATION Last administered on 07/02/16 01:19; Start 06/30/16 at 20:45 Phytonadione 10 mg/Sodium Chloride 51 ml @ 102 mls/hr 1X ONCE IV Last administered on 06/30/16 22:25; Start 06/30/16 at 21:00; Stop 06/30/16 at 21:29 ; Status DC Insulin Aspart (NovoLOG) 0-9 UNITS QIDACHS SQ Last administered on 07/03/16 17 :54; Start 06/30/16 at 21:00 Dextrose (Dextrose 50%-Water Syringe) 12.5 gm PRN Q15MIN PRN IV SEE COMMENTS; Start 06/30/16 at 21:00 Insulin Detemir (Levemir) QHS SQ ; Start 06/30/16 at 21:00; Stop 06/30/16 at 21 :01; Status DC Insulin Detemir (Levemir) 5 units QHS SQ Last administered on 07/02/16 20:55; Start 06/30/16 at 21:15 Midazolam HCl (Versed) 5 mg STK-MED ONCE .ROUTE ; Start 06/30/16 at 21:05; Stop 06/30/16 at 21:06; Status DC Fentanyl Citrate (Fentanyl 2ml Vial) 100 mcg STK-MED ONCE .ROUTE ; Start at 21:05; Stop 06/30/16 at 21:06; Status DC Diphenhydramine HCl (Benadryl) 50 mg STK-MED ONCE .ROUTE ; Start 06/30/16 at 21: 05; Stop 06/30/16 at 21:06; Status DC Gabapentin (Neurontin) 300 mg TID PO Last administered on 07/03/16 14:10; Start 07/01/16 at 09:00 Diphenhydramine HCl (Benadryl) 50 mg STK-MED ONCE IV Last administered on 21:20; Start 06/30/16 at 21:20; Stop 06/30/16 at 21:26; Status DC Verapamil HCl (Verapamil) 5 mg STK-MED ONCE IV Last administered on 06/30/16 21:21; Start 06/30/16 at 21:21; Stop 06/30/16 at 21:26; Status DC Fentanyl Citrate (Fentanyl 2ml Vial) 100 mcg STK-MED ONCE IV Last administered on 06/30/16 21:21; Start 06/30/16 at 21:21; Stop 06/30/16 at 21:27; Status DC Midazolam HCl (Versed) 5 mg STK-MED ONCE IV Last administered on 06/30/16 21: 24; Start 06/30/16 at 21:24; Stop 06/30/16 at 21:27; Status DC Fentanyl Citrate (Fentanyl 2ml Vial) 100 mcg STK-MED ONCE IV Last administered on 06/30/16 21:24; Start 06/30/16 at 21:24; Stop 06/30/16 at 21:27; Status DC Midazolam HCl (Versed) 5 mg STK-MED ONCE IV Last administered on 06/30/16 21: 28; Start 06/30/16 at 21:28; Stop 06/30/16 at 21:30; Status DC Epinephrine HCl (Adrenalin) 1 mg STK-MED ONCE .ROUTE ; Start 06/30/16 at 21:36; Stop 06/30/16 at 21:37; Status DC Epinephrine HCl (EPINEPHrine SYRINGE) 1 mg STK-MED ONCE .ROUTE ; Start 06/30/16 at 21:39; Stop 06/30/16 at 21:40; Status DC Epinephrine HCl (EPINEPHrine SYRINGE) 1 mg STK-MED ONCE .ROUTE ; Start 06/30/16 at 21:43; Stop 06/30/16 at 21:44; Status DC Gabapentin (Neurontin) 300 mg 1X ONCE PO Last administered on 06/30/16 22:31 ; Start 06/30/16 at 22:30; Stop 06/30/16 at 22:31; Status DC Pantoprazole Sodium 80 mg/ Sodium Chloride 100 ml @ 10 mls/hr Q10H IV Last administered on 07/03/16 10:47; Start 07/01/16 at 04:00; Stop 07/03/16 at 12:13 ; Status DC Epinephrine HCl (EPINEPHrine SYRINGE) 2 mg STK-MED ONCE .ROUTE ; Start 06/30/16 at 21:00; Stop 07/01/16 at 08:38; Status DC Epinephrine HCl (Adrenalin) 1 mg STK-MED ONCE .ROUTE ; Start 06/30/16 at 21:00; Stop 07/01/16 at 08:38; Status DC Sodium Chloride 100 ml @ 999 mls/hr 1X ONCE IV Last administered on 09:30; Start 07/01/16 at 09:30; Stop 07/01/16 at 12:33; Status DC Sodium Chloride 1,000 ml @ 70 mls/hr [id number] IV Last administered on 14:10; Start 07/01/16 at 10:00 Ringer's Solution 1,000 ml @ 50 mls/hr Q20H IV ; Start 07/02/16 at 14:06; Stop 07/03/16 at 02:05; Status DC Propofol 20 ml @ As Directed STK-MED ONCE IV ; Start 07/02/16 at 15:02; Stop at 15:03; Status DC Pantoprazole Sodium (Protonix Vial) 40 mg BIDAC IVP Last administered on t 17:09; Start 07/03/16 at 16:30 Vitals/I & O Vital Sign - Last 24 Hours 07/02/16 07/02/16 07/02/16 07/02/16 20:53 21:00 22:00 23:00 Pulse 65 66 62 Resp 20 22 18 20 B/P (MAP) 152/67 (95) 149/50 (83) 155/69 (97) Pulse Ox 97 93 98 97 O2 Delivery Room Air Room Air Room Air Room Air 07/02/16 07/03/16 07/03/16 07/03/16 23:59 00:00 00:16 01:00 Temp 97.7 97.7 Pulse 64 Resp 20 20 20 B/P (MAP) 156/72 (100) Pulse Ox 98 97 98 O2 Delivery Room Air Room Air Room Air 07/03/16 07/03/16 07/03/16 07/03/16 01:00 02:00 03:00 04:00 Temp 97.6 97.6 Pulse 66 71 68 66 Resp 22 18 20 20 B/P (MAP) 156/72 (100) 150/53 (85) 125/48 (73) 131/41 (71) Pulse Ox 97 95 93 98 O2 Delivery Room Air Room Air Room Air Nasal Cannula O2 Flow Rate 2.0 07/03/16 07/03/16 07/03/16 07/03/16 04:00 05:00 06:00 07:00 Pulse 63 66 66 Resp 18 22 18 B/P (MAP) 122/40 (67) 124/51 (75) 102/45 (64) Pulse Ox 98 98 99 O2 Delivery Room Air Nasal Cannula Nasal Cannula Nasal Cannula O2 Flow Rate 2.0 2.0 2.0 07/03/16 07/03/16 07/03/16 07/03/16 08:00 08:00 09:00 10:00 Temp 98.0 98.0 Pulse 68 66 68 Resp 23 19 22 B/P (MAP) 104/70 (81) 137/103 (114) 153/66 (95) Pulse Ox 98 95 97 O2 Delivery Room Air Room Air Room Air Room Air 07/03/16 07/03/16 07/03/16 07/03/16 11:00 12:00 12:00 14:18 Temp 98.0 98.0 Pulse 75 72 Resp 23 20 B/P (MAP) 149/62 (91) 156/58 (90) Pulse Ox 97 95 97 O2 Delivery Room Air Room Air Room Air Room Air 07/03/16 07/03/16 07/03/16 07/03/16 14:48 16:00 17:51 19:00 Temp 98.2 98.0 96.6 98.2 98.0 96.6 Pulse 72 79 89 Resp 22 20 20 B/P (MAP) 143/56 (85) 140/52 (81) 154/66 (95) Pulse Ox 97 98 94 O2 Delivery Room Air Room Air Room Air Room Air Intake and Output 07/02/16 07/02/16 07/03/16 15:00 23:00 07:00 Intake Total 50 ml 1000 ml 2544 ml Output Total 600 ml 450 ml 750 ml Balance -550 ml 550 ml 1794 ml RAMONITA HINTON MD July 03, 2016 20:22
[2016-07-03] MEDS: INSULIN DETEMIR 300 UNITS/3 ML INSULN.PEN. SQ SCH (21:24)
[2016-07-04] MEDS: IV NORMAL SALINE 1000ML BAG 1,000 ML IV SCH (02:28)
[2016-07-04 03:00] VITALS: BP 155/57
[2016-07-04 07:00] VITALS: BP 141/56
[2016-07-04] MEDS: PANTOPRAZOLE IV PUSH 40 MG VIAL. IVP SCH (08:14)
[2016-07-04] MEDS: GABAPENTIN 300 MG CAPSULE. PO SCH ×3 (08:14→21:32)
[2016-07-04] MEDS: INSULIN ASPART 300 UNITS/3 ML INSULN.PEN SQ SCH ×4 (08:22→21:42)
--- NOTE | 2016-07-04 10:05 | PDOC ---
Subjective: Subjective: Eating well, likes food here. [place] constipated yesterday, had another dark (formed) stool. Some nausea. Objective: Vital Signs: Vital Signs Date Time Temp Pulse Resp B/P (MAP) Pulse Ox O2 Delivery O2 Flow Rate FiO2 07/04/16 07:00 97.8 79 18 141/56 (84) 94 Room Air 97.8 07/03/16 07:00 2.0 Labs: Laboratory Tests Test 07/03/16 12:06 07/03/16 16:52 07/03/16 20:35 07/04/16 07:38 Glucose (Fingerstick) 171 mg/dL 192 mg/dL 237 mg/dL 265 mg/dL PE: GEN: NAD LUNGS: CTAB HEART: RRR ABD: NABS, S/ND/NT NEURO/PSYCH: A & O 3 A/P: Hep C cirrhosis s/p TIPS, patent Gastric varix Anemia, thrombocytopenia -Hgb stable, no labs today Coffee-ground emesis - resolved Dark stool -yesterday, was formed, felt constipated -- Will check hemogram now and advance to regular diet. If Hgb stable, okay to DC per GI. Referral to for gluing of gastric varix - our office has started this process. D/w RN. BETO IQBAL July 04, 2016 10:05
[2016-07-04 10:30] LABS: HEMATOCRIT 24.6 % (39.0-53.0); HEMOGLOBIN 8.8 g/dL (13.0-17.5); RED BLOOD COUNT 2.76 x10^6/uL (4.30-5.70); RED CELL DISTRIBUTION WIDTH 19.5 % (11.5-14.5); WHITE BLOOD COUNT 5.9 x10^3/uL (4.0-11.0)
--- NOTE | 2016-07-04 10:51 | PDOC3 ---
Discharge Summary Visit Information Date of Admission: June 30, 2016 Date of Discharge: July 04, 2016 Admitting Diagnosis Comment: Hep C cirrhosis s/p TIPS, patent Gastric varix Anemia, thrombocytopenia -Hgb stable, Coffee-ground emesis - resolved Dark stool Final Diagnosis Problems Medical Problems: (1) Esophageal varices Status: Acute (2) Liver cirrhosis Status: Acute (3) Upper GI bleed Status: Acute Brief Hospital Course Allergies Allergies Coded Allergies Type Severity Reaction Last Updated Verified Penicillins Allergy Intermediate 07/02/16 Yes Sulfa (Sulfonamide Antibiotics) Allergy Intermediate RASH PRURITIS 07/02/16 No amoxicillin Allergy Intermediate 07/02/16 Yes dicloxacillin Allergy Intermediate 07/02/16 Yes levofloxacin Allergy Intermediate 07/01/16 Yes Vital Signs Vital Signs Date Time Temp Pulse Resp B/P (MAP) Pulse Ox O2 Delivery O2 Flow Rate FiO2 07/04/16 07:45 Room Air 2.0 07/04/16 07:00 97.8 79 18 141/56 (84) 94 97.8 Lab Results Laboratory Tests Test 07/02/16 13:26 07/02/16 16:21 07/02/16 19:00 07/02/16 20:46 Glucose (Fingerstick) 159 mg/dL (70-99) 149 mg/dL (70-99) 315 mg/dL (70-99) Hemoglobin 8.4 g/dL (13.0-17.5) Hematocrit 24.2 % (39.0-53.0) Test 07/03/16 08:29 07/03/16 08:41 07/03/16 12:06 07/03/16 16:52 Glucose (Fingerstick) 118 mg/dL (70-99) 171 mg/dL (70-99) 192 mg/dL (70-99) White Blood Count 5.0 x10^3/uL (4.0-11.0) Red Blood Count 2.68 x10^6/uL (4.30-5.70) Hemoglobin 8.6 g/dL (13.0-17.5) Hematocrit 24.0 % (39.0-53.0) Mean Corpuscular Volume 90 fL (79-100) Mean Corpuscular Hemoglobin 32 pg (25-35) Mean Corpuscular Hemoglobin Concent 36 g/dL (31-37) Red Cell Distribution Width 18.7 % (11.5-14.5) Platelet Count 76 x10^3/uL (140-400) Neutrophils (%) (Auto) 74 % (31-73) Lymphocytes (%) (Auto) 13 % (24-48) Monocytes (%) (Auto) 8 % (0-9) Eosinophils (%) (Auto) 5 % (0-3) Basophils (%) (Auto) 0 % (0-3) Neutrophils # (Auto) 3.7 x10^3uL (1.8-7.7) Lymphocytes # (Auto) 0.7 x10^3/uL (1.0-4.8) Monocytes # (Auto) 0.4 x10^3/uL (0.0-1.1) Eosinophils # (Auto) 0.2 x10^3/uL (0.0-0.7) Basophils # (Auto) 0.0 x10^3/uL (0.0-0.2) Test 07/03/16 20:35 07/04/16 07:38 07/04/16 09:25 Glucose (Fingerstick) 237 mg/dL (70-99) 265 mg/dL (70-99) White Blood Count 5.9 x10^3/uL (4.0-11.0) Red Blood Count 2.76 x10^6/uL (4.30-5.70) Hemoglobin 8.8 g/dL (13.0-17.5) Hematocrit 24.6 % (39.0-53.0) Mean Corpuscular Volume 89 fL (79-100) Mean Corpuscular Hemoglobin 32 pg (25-35) Mean Corpuscular Hemoglobin Concent 36 g/dL (31-37) Red Cell Distribution Width 19.5 % (11.5-14.5) Platelet Count 76 x10^3/uL (140-400) Laboratory Tests Test 07/03/16 12:06 07/03/16 16:52 07/03/16 20:35 07/04/16 07:38 Glucose (Fingerstick) 171 mg/dL (70-99) 192 mg/dL (70-99) 237 mg/dL (70-99) 265 mg/dL (70-99) Test 07/04/16 09:25 White Blood Count 5.9 x10^3/uL (4.0-11.0) Red Blood Count 2.76 x10^6/uL (4.30-5.70) Hemoglobin 8.8 g/dL (13.0-17.5) Hematocrit 24.6 % (39.0-53.0) Mean Corpuscular Volume 89 fL (79-100) Mean Corpuscular Hemoglobin 32 pg (25-35) Mean Corpuscular Hemoglobin Concent 36 g/dL (31-37) Red Cell Distribution Width 19.5 % (11.5-14.5) Platelet Count 76 x10^3/uL (140-400) Brief Hospital Course Mr. Pierce is a 55 old male, prisoner, admitted for melena and coffee ground emesis. Significant GI hx, see above, NO further intervention on his stay here, hemodynamically stable, hgb 8.6 on dc, platelets 76 - always been Dc [facility] New Rx PPI 40 PO qD Levemir 5 qhs Ff up [facility] for variceal glue intervention ' PT seen and examined\ COnsulT GI Discharge Information Condition at Discharge: Improved, Stable Disposition/Orders: Other ([facility]) NOELLE BAUTISTA MD July 04, 2016 10:51
[2016-07-04 11:00] VITALS: BP 138/48
[2016-07-04] MEDS: fentaNYL PF VIAL 100 MCG/2 ML VIAL IV PRN ×2 (13:20→21:46)
[2016-07-04] MEDS: ONDANSETRON PF 4 MG/2 ML VIAL. IV PRN (13:58)
[2016-07-04 15:00] VITALS: BP 133/60
--- NOTE | 2016-07-04 16:56 | PDOC ---
Provider Note Provider Note episode of hematemesis, gastric varix on second EGD as inpt, Needs [facility] for higher level of care, injection of cyanoacrylate, as per GI Attempting transfer to [facility] Called [facility], aware of the referral. NOELLE BAUTISTA MD July 04, 2016 16:56
[2016-07-04 18:47] LABS: HEMATOCRIT 18.7 % (39.0-53.0); HEMOGLOBIN 6.4 g/dL (13.0-17.5)
[2016-07-04] MEDS ORDERED: ACETAMINOPHEN 325 MG TABLET. PO PRN (19:15)
[2016-07-04] MEDS ORDERED: diphenhydrAMINE HCL 25 MG CAPSULE PO PRN (19:15)
[2016-07-04 19:57] LABS: INR 1.6 (0.8-1.1); PROTHROMBIN TIME PATIENT 18.1 SEC (11.7-14.0)
[2016-07-04 20:04] VITALS: BP 150/51
[2016-07-04] MEDS: INSULIN DETEMIR 300 UNITS/3 ML INSULN.PEN. SQ SCH (21:41)
[2016-07-05] MEDS ORDERED: PANTOPRAZOLE 40 MG TABLET.DR. PO SCH (07:30)
== END 2016-07-04 22:11 | disposition short-term general hospital (02) | DRG 299 ==
LOC: ER 19:20 → EEVIPCON 19:20 → 1 WEST ICU 19:24 → 4 NORTH 07-03 17:35
PROVIDERS: ADMIT Internal Medicine; ATTEND Internal Medicine
PROC: 30233N1 Transfusion of Nonautologous Red Blood Cells into Peripheral Vein, Percutaneous Approach (ICD-10-PCS; 2016-06-30)
PROC: 0DJ08ZZ Inspection of Upper Intestinal Tract, Via Natural or Artificial Opening Endoscopic (ICD-10-PCS; principal; 2016-06-30 21:11)
DX: I86.4 Gastric varices (principal); K25.4 Chronic or unspecified gastric ulcer with hemorrhage; D62 Acute posthemorrhagic anemia; E44.0 Moderate protein-calorie malnutrition; R65.10 Systemic inflammatory response syndrome (SIRS) of non-infectious origin without acute organ dysfunction; B19.20 Unspecified viral hepatitis C without hepatic coma; D69.6 Thrombocytopenia, unspecified; E11.65 Type 2 diabetes mellitus with hyperglycemia; E11.40 Type 2 diabetes mellitus with diabetic neuropathy, unspecified; I10 Essential (primary) hypertension; K74.60 Unspecified cirrhosis of liver; K72.90 Hepatic failure, unspecified without coma; Z88.1 Allergy status to other antibiotic agents; Z68.31 Body mass index [BMI] 31.0-31.9, adult; Z88.0 Allergy status to penicillin; Z88.2 Allergy status to sulfonamides
CPT/HCPCS: 36415; 80048; 80053; 80076; 82274; 82947; 85007; 85014; 85018; 85027; 85610; 85730; 86850; 86900; 86901; 86920; 87641; 93976; 96365; 96375; C9113; J0171; J1200; J1815; J2060; J2250; J2354; J2405; J2704; J3010; J3430; J7030; J7040; P9016; 99285-25

== ENCOUNTER 2020-01-14 10:41 | Emergency (ER) | payer MEDICAID, OTHER ==
[~2020-01-14] VITALS: Ht 188 cm; Wt 114.0 kg
[2020-01-14 13:44] LABS: BILIRUBIN,URINE NEGATIVE (NEG); CLARITY,URINE CLEAR; COLOR,URINE AMBER; NITRITE,URINE NEGATIVE (NEG); PROTEIN,URINE NEGATIVE (NEG-TRACE)
[2020-01-14 13:55] LABS: BACTERIA,URINE 0 /HPF (0-FEW); RBC,URINE 0 /HPF (0-2); WBC,URINE 0 /HPF (0-4)
[2020-01-14 14:08] LABS: BASO # 0.1 x10^3/uL (0.0-0.2); BASO % 1 % (0-3); EOS # 0.2 x10^3/uL (0.0-0.7); EOS % 3 % (0-3); HEMATOCRIT 50.9 % (39.0-53.0); HEMOGLOBIN 17.2 g/dL (13.0-17.5); LYMPH # 1.2 x10^3/uL (1.0-4.8); LYMPH % 14 % (24-48); MEAN CORPUSCULAR HEMOGLOBIN 27 pg (25-35); MEAN CORPUSCULAR HGB CONC 34 g/dL (31-37); MEAN CORPUSCULAR VOLUME 81 fL (79-100); MONO # 0.9 x10^3/uL (0.0-1.1); MONO % 10 % (0-9); NEUT # 6.5 x10^3/uL (1.8-7.7); NEUT % 74 % (31-73); PLATELET COUNT 155 x10^3/uL (140-400); RED BLOOD COUNT 6.31 x10^6/uL (4.30-5.70); WHITE BLOOD COUNT 8.8 x10^3/uL (4.0-11.0)
[2020-01-14 14:26] LABS: CALCIUM 9.7 mg/dL (8.5-10.1); CREATININE 1.3 mg/dL (0.7-1.3); GFR 56.1
[2020-01-14 14:38] LABS: ALBUMIN 3.1 g/dL (3.4-5.0); ALBUMIN/GLOBULIN RATIO 0.7 (1.0-1.7); MAGNESIUM 2.2 mg/dL (1.8-2.4); TOTAL BILIRUBIN 6.5 mg/dL (0.2-1.0); TOTAL PROTEIN 7.6 g/dL (6.4-8.2)
--- NOTE | 2020-01-14 16:46 | RAD ---
ABDOMEN LTD History: Reason: RUQ ABDOMINAL PAIN FOR 4 DAYS / Spl. Instructions: / History: Comparison: July 02, 2016 ultrasound. Technique: Transabdominal ultrasound images are obtained of the right upper quadrant. Findings: Visualized pancreas is is not well seen due to overlying bowel gas. Heterogeneous coarse nodular liver. Right hepatic lobe measures 17.6 cm. Patent portal vein. Patent TIPS stent. Gallbladder has an unremarkable appearance. Common bile duct measures 2.5 mm in diameter. Right kidney not well evaluated due to overlying structures. No hydronephrosis. Aorta and IVC not well seen due to overlying bowel gas. Trace perihepatic free fluid. IMPRESSION: 1. Heterogeneous coarse hepatic echotexture with nodularity, compatible with chronic liver disease. 2. Patent TIPS stent. 3. Trace perihepatic free fluid. Electronically signed by: Joe Trejo DO (01/14/2020 3:30 PM) [id number]
--- NOTE | 2020-01-14 17:03 | PHYS DOC ---
Past Medical History Past Medical History: Diabetes-Type II, GERD, Heart Disease, Hypertension, Hepatitis, Prostatitis, Other Additional Past Medical Histor: Liver failure, Cirrhosis s/p TIPS, Esophageal varices, PERSONALITY DISORDER Past Surgical History: Knee Replacement, Other Additional Past Surgical Histo: esophageal bands "x200", TIPS, L4/L5 SX, RIGHT ELBOW Smoking Status: Former Smoker Alcohol Use: None Drug Use: None General Adult EDM: Chief Complaint: ABDOMINAL PAIN HPI: HPI: Patient is a 59 year old male who was an inmate at [facility], was brought here for evaluation of right upper quadrant abdominal pain that been going on for about 3 days. Patient also has some diarrhea. Patient denies drinking alcohol. Patient has history of liver disease, cirrhosis status post TIPS procedure. Patient was seen at liver transplant clinic sometime in the past. Patient said he has some form of hepatitis C. patient said about 3 months ago he has some fungal infection in his feet, he was put on antifungal medication. And it messed up with his liver. Patient denies any fever, no neck pain, no headache, no chest pain, no trouble breathing, no cough, no nausea vomiting. Review of Systems: Review of Systems: Constitutional: Denies fever or chills. [] Eyes: Denies change in visual acuity. [] HENT: Denies nasal congestion or sore throat. [] Respiratory: Denies cough or shortness of breath. [] Cardiovascular: Denies chest pain or edema. [] GI: Positive for right upper quadrant abdominal pain, no nausea, vomiting, positive for diarrhea : Denies dysuria. [] Musculoskeletal: Denies back pain or joint pain. [] Integument: Denies rash. [] Neurologic: Denies headache, focal weakness or sensory changes. [] Endocrine: Denies polyuria or polydipsia. [] Lymphatic: Denies swollen glands. [] Psychiatric: Denies depression or anxiety. [] Heart Score: Risk Factors: Risk Factors: DM, Current or recent (<one month) smoker, HTN, HLP, family history of CAD, obesity. Risk Scores: Score 0 - 3: 2.5% MACE over next 6 weeks - Discharge Home Score 4 - 6: 20.3% MACE over next 6 weeks - Admit for Clinical Observation Score 7 - 10: 72.7% MACE over next 6 weeks - Early Invasive Strategies Allergies: Allergies: Allergies Coded Allergies Type Severity Reaction Last Updated Verified Penicillins Allergy Intermediate 07/02/16 Yes Sulfa (Sulfonamide Antibiotics) Allergy Intermediate RASH PRURITIS 07/02/16 No amoxicillin Allergy Intermediate 07/02/16 Yes dicloxacillin Allergy Intermediate 07/02/16 Yes levofloxacin Allergy Intermediate 07/01/16 Yes Physical Exam: PE: Constitutional: Well developed, well nourished, no acute distress, non-toxic appearance. [] HENT: Normocephalic, atraumatic, bilateral external ears normal, oropharynx moist, no oral exudates, nose normal. [] Eyes: PERRLA, EOMI, conjunctiva normal, no discharge. [] Neck: Normal range of motion, no tenderness, supple, no stridor. [] Cardiovascular:Heart rate regular rhythm, no murmur [] Lungs & Thorax: Bilateral breath sounds clear to auscultation [] Abdomen: Bowel sounds normal, soft, There is tenderness in RUQ, NO REBOUND, NO GUARDING, no masses, no pulsatile masses. [] Skin: Warm, dry,JAUNDICE. Back: No tenderness, no CVA tenderness. [] Extremities: No tenderness, no cyanosis, no clubbing, ROM intact, no edema. [] Neurologic: Alert and oriented X 3, normal motor function, normal sensory function, no focal deficits noted. [] Psychologic: Affect normal, judgement normal, mood normal. [] Current Patient Data: Labs: Laboratory Tests Test 01/14/20 13:34 01/14/20 13:55 Urine Collection Type Void Urine Color Jojo Urine Clarity Clear Urine pH 6.0 (<5.0-8.0) Urine Specific [place] 1.010 (1.000-1.030) Urine Protein Negative mg/dL (NEG-TRACE) Urine Glucose (UA) Negative mg/dL (NEG) Urine Ketones (Stick) Negative mg/dL (NEG) Urine Blood Negative (NEG) Urine Nitrite Negative (NEG) Urine Bilirubin Negative (NEG) Urine Urobilinogen Dipstick 1.0 mg/dL (0.2 mg/dL) Urine Leukocyte Esterase Negative (NEG) Urine RBC 0 /HPF (0-2) Urine WBC 0 /HPF (0-4) Urine Bacteria 0 /HPF (0-FEW) White Blood Count 8.8 x10^3/uL (4.0-11.0) Red Blood Count 6.31 x10^6/uL (4.30-5.70) H Hemoglobin 17.2 g/dL (13.0-17.5) Hematocrit 50.9 % (39.0-53.0) Mean Corpuscular Volume 81 fL (79-100) Mean Corpuscular Hemoglobin 27 pg (25-35) Mean Corpuscular Hemoglobin Concent 34 g/dL (31-37) Red Cell Distribution Width 17.0 % (11.5-14.5) H Platelet Count 155 x10^3/uL (140-400) Neutrophils (%) (Auto) 74 % (31-73) H Lymphocytes (%) (Auto) 14 % (24-48) L Monocytes (%) (Auto) 10 % (0-9) H Eosinophils (%) (Auto) 3 % (0-3) Basophils (%) (Auto) 1 % (0-3) Neutrophils # (Auto) 6.5 x10^3/uL (1.8-7.7) Lymphocytes # (Auto) 1.2 x10^3/uL (1.0-4.8) Monocytes # (Auto) 0.9 x10^3/uL (0.0-1.1) Eosinophils # (Auto) 0.2 x10^3/uL (0.0-0.7) Basophils # (Auto) 0.1 x10^3/uL (0.0-0.2) Prothrombin Time 14.0 SEC (11.7-14.0) Prothrombin Time INR 1.1 (0.8-1.1) Activated Partial Thromboplast Time 27 SEC (24-38) Sodium Level 137 mmol/L (136-145) Potassium Level 5.0 mmol/L (3.5-5.1) Chloride Level 102 mmol/L (98-107) Carbon Dioxide Level 21 mmol/L (21-32) Anion Gap 14 (6-14) Blood Urea Nitrogen 28 mg/dL (8-26) H Creatinine 1.3 mg/dL (0.7-1.3) Estimated GFR (Cockcroft-Gault) 56.1 BUN/Creatinine Ratio 22 (6-20) H Glucose Level 119 mg/dL (70-99) H Calcium Level 9.7 mg/dL (8.5-10.1) Magnesium Level 2.2 mg/dL (1.8-2.4) Total Bilirubin 6.5 mg/dL (0.2-1.0) H Aspartate Amino Transferase (AST) 368 U/L (15-37) H Alanine Aminotransferase (ALT) 93 U/L (16-63) H Alkaline Phosphatase 302 U/L (46-116) H Troponin I Quantitative < 0.017 ng/mL (0.000-0.055) Total Protein 7.6 g/dL (6.4-8.2) Albumin 3.1 g/dL (3.4-5.0) L Albumin/Globulin Ratio 0.7 (1.0-1.7) L Lipase 96 U/L (73-393) Laboratory Tests 01/14/20 13:55 Laboratory Tests 01/14/20 13:55 Vital Signs: Vital Signs Date Time Temp Pulse Resp B/P (MAP) Pulse Ox O2 Delivery O2 Flow Rate FiO2 01/14/20 13:40 98.1 68 22 158/71 (100) 93 Room Air 98.1 EKG: EKG: [] Radiology/Procedures: Radiology/Procedures: [][facility] [address] [place], [place] [id number] IMAGING REPORT Signed PATIENT: TOMASA DEVINE ACCOUNT: [id number] : 1960 LOCATION: ER AGE: 59 SEX: M EXAM STATUS: REG ER ORD. PHYSICIAN: BRANDON LUZ DO REASON: RUQ ABDOMINAL PAIN FOR 4 DAYS PROCEDURE: ABDOMEN LTD ABDOMEN LTD History: Reason: RUQ ABDOMINAL PAIN FOR 4 DAYS / Spl. Instructions: / History: Comparison: July 02, 2016 ultrasound. Technique: Transabdominal ultrasound images are obtained of the right upper quadrant. Findings: Visualized pancreas is is not well seen due to overlying bowel gas. Heterogeneous coarse nodular liver. Right hepatic lobe measures 17.6 cm. Patent portal vein. Patent TIPS stent. Gallbladder has an unremarkable appearance. Common bile duct measures 2.5 mm in diameter. Right kidney not well evaluated due to overlying structures. No hydronephrosis. Aorta and IVC not well seen due to overlying bowel gas. Trace perihepatic free fluid. IMPRESSION: 1. Heterogeneous coarse hepatic echotexture with nodularity, compatible with chronic liver disease. 2. Patent TIPS stent. 3. Trace perihepatic free fluid. Electronically signed by: Joe Garsia DO (01/14/2020 3:30 PM) [id number] DICTATED and SIGNED BY: JOE GARSIA DO DATE: 01/14/20 [id number] 0 Course & Med Decision Making: Course & Med Decision Making Pertinent Labs and Imaging studies reviewed. (See chart for details) Patient is a 59-year-old male who was evaluated in the ER today due to right upper quadrant abdominal pain. Patient has history of liver disease, hepatitis C, cirrhosis, bilirubin IS elevated. Patient will need to follow-up with his liver doctor at in outpatient setting for further evaluation and treatment. Information was given to the GUARDS WHO WERE WITH HIM. [place] Disclaimer: Dragon Disclaimer: This electronic medical record was generated, in whole or in part, using a voice recognition dictation system. Departure Departure Impression: Primary Impression: Hepatitis Additional Impression: Abdominal pain Disposition: 01 DC HOME SELF CARE/HOMELESS Condition: STABLE Referrals: UNKNOWN PCP NAME (PCP) PLEASE FOLLOW UP WITH YOUR LIVER AT THE [facility] NEXT WEEK FOR REEVALUATION OF YOUR LIVER PROBLEM. Patient Instructions: Abdominal Pain, Jaundice, Liver Disease Diet Additional Instructions: Thank you for visiting our Emergency Department. We appreciate you trusting us with your care. If any additional problems come up don't hesitate to return to visit us. Please follow up with your primary care provider so they can plan additional care if needed and know about the problem that you had. If symptoms worsen come back to the Emergency Department. Any concerning symptoms that start such as chest pain, shortness of air, weakness or numbness on one side of the body, running high fevers or any other concerning symptoms return to the ER. BRANDON LUZ DO Jan 14, 2020 17:03
[2020-01-14 18:10] VITALS: BP 162/72
--- NOTE | 2020-01-18 10:40 | EKG ---
[facility] [address] [place] [address] Test Date: 2020-01-14 Test Time: 14:04:44 Pat Name: TOMASA DEVINE Department: Room: Gender: M Liner Man: : 1960 Requested By: BRANDON LUZ Order Number: [id number] Reading MD: Measurements Intervals [place] Rate: 65 P: 93 UT: 170 QRS: -7 QRSD: 94 T: 25 QT: 426 QTc: 444 Interpretive Statements SINUS RHYTHM LEFTWARD AXIS INCOMPLETE RIGHT BUNDLE BRANCH BLOCK NO SPECIFIC ECG ABNORMALITIES RI6.02 No previous ECG available for comparison
== END 2020-01-14 18:17 | disposition home or self-care (01) ==
LOC: EEVIPCON 10:41 → ER 10:41
DX: K75.9 Inflammatory liver disease, unspecified (principal); I11.9 Hypertensive heart disease without heart failure; K21.9 Gastro-esophageal reflux disease without esophagitis; E11.9 Type 2 diabetes mellitus without complications; Z87.891 Personal history of nicotine dependence; Z88.0 Allergy status to penicillin; Z88.1 Allergy status to other antibiotic agents; Z88.2 Allergy status to sulfonamides
CPT/HCPCS: 36415; 76705; 80053; 81001; 82962; 83690; 83735; 84484; 85025; 85610; 85730; 93005; 99285-25